=== PATIENT | male | born 1945 | race Caucasian/White ===

== ENCOUNTER 2017-01-07 05:26 | Inpatient (IN) | payer MEDICARE, MEDICAID ==
[2017-01-07] VITALS (10 sets, daily range): BP systolic 86–112; BP diastolic 52–64; PULSE 82–93; RESP 16–24; TEMP 96.5–98.9; O2SAT 92–98
--- NOTE | 2017-01-07 05:43 | PD ---
HPI Chief Complaint: Altered Mental Status Time Seen by Provider: 05:35 Travel History International Travel<30 days: No Contact w/Intl Traveler<30days: No Traveled to known affect area: No History of Present Illness HPI 71yo M with PMH of COPD, aphasia and CVA was sent from [facility] for possible aspiration. As per EVAC, pt vomited after apple juice at 3pm yesterday. Then today at about 3am, the staff noticed he was nonverbal. Pt's baseline is usually incomprehensible sounds but not nonverbal. Pt did make some sound when we moved him so this may be his baseline. He does appear dry. Was also told there was not much urine output from his palomo catheter. Unable to obtain further history. PFSH Past Medical History ?: Unknown Social History Tobacco Use: No Allergies-Medications (Allergen,Severity, Reaction): Coded Allergies: No Known Allergies (Unverified , 01/07/17) Reported Meds & Prescriptions Reported Meds & Active Scripts Active Reported Novolin R Inj (Insulin Human Regular) 1,000 Unit/10 Ml Vial 0 SQ DIRECTED Sliding Scale As Directed. Metoprolol Tartrate 50 Mg Tab 50 Mg PEG BID Lantus Inj (Insulin Glargine) 1,000 Unit/10 Ml Vial 45 Units SQ HS Ferrous Sulfate Liq (Ferrous Sulfate) 300 Mg/5 Ml Soln 220 Mg PEG BID Famotidine 20 Mg Tab 20 Mg PEG DAILY Citroma Liq (Magnesium Citrate) 300 Ml Liq 300 Ml PEG DIRECTED PRN Cholestyramine 4 Gm/Dose Powd 4 Gm PEG QID PRN 1 level scoopful of powder contains 4 grams of cholestyramine. Cerovite Advanced Formula (Multiple Vitamins W/ Minerals) 9 Mg Iron/15 Ml Liq 1 Tab PEG DAILY Calcium Carbonate 1,500 Mg Tab 600 Mg PEG TID 1,500 mg calcium carbonate (600 mg elemental calcium) Acetaminophen 325 Mg Capsule 325 Mg PEG Q4HR Review of Systems Except as stated in HPI: all other systems reviewed are Neg Physical Exam Narrative GENERAL: 71yo M not in distress. SKIN: Focused skin assessment warm/dry. HEAD: Atraumatic. Normocephalic. EYES: Pupils equal and round at 3mm bilaterally. ENT: No nasal bleeding or discharge. Mucous membranes dry. NECK: Trachea midline. No JVD. CARDIOVASCULAR: Regular rate and rhythm. No murmur appreciated. RESPIRATORY: No accessory muscle use. Coarse breath sounds bilaterally. GASTROINTESTINAL: Abdomen soft, +TTP suprapubic and LLQ. Suprapubic region felt distended. BACK: No midline ttp. MUSCULOSKELETAL: No obvious deformities. No clubbing. No cyanosis. No edema. NEUROLOGICAL: Awake and alert. Nonverbal. Right leg contracted which he has had. Data Data Last Documented VS Vital Signs Date Time Temp Pulse Resp B/P (MAP) Pulse Ox O2 Delivery O2 Flow Rate FiO2 01/07/17 07:15 86 20 96 Room Air 01/07/17 07:13 98.3 93/57 (69) 01/07/17 06:41 2.00 Orders Orders Ammonia (01/07/17 05:35) Complete Blood Count With Diff (01/07/17 05:35) Comprehensive Metabolic Panel (01/07/17 05:35) Creatine Kinase (Cpk) (01/07/17 05:35) Prothrombin Time / Inr (Pt) (01/07/17 05:35) Act Partial Throm Time (Ptt) (01/07/17 05:35) Troponin I (01/07/17 05:35) Thyroid Stimulating Hormone (01/07/17 05:35) Urinalysis - C+S If Indicated (01/07/17 05:35) Lactic Acid Sepsis Protocol (01/07/17 05:35) Blood Culture (01/07/17 05:35) Chest, Single Ap (01/07/17 05:35) Ct Brain W/O Iv Contrast(Rout) (01/07/17 05:35) Blood Glucose (01/07/17 05:35) Ecg Monitoring (01/07/17 05:35) Iv Access Insert/Monitor (01/07/17 05:35) Oximetry (01/07/17 05:35) Electrocardiogram (01/07/17 ) Urine Culture (01/07/17 05:38) Vancomycin Inj (Vancomycin Inj) (01/07/17 06:45) Piperacil-Tazo 2.25 Gm Premix (Zosyn 2.2 (01/07/17 06:45) Sodium Chlor 0.9% 1000 Ml Inj (Ns 1000 M (01/07/17 06:45) Ct Abd/Pel W/O Iv Contrast (01/07/17 ) Sodium Chlor 0.9% 1000 Ml Inj (Ns 1000 M (01/07/17 07:00) Sodium Chlor 0.9% 1000 Ml Inj (Ns 1000 M (01/07/17 07:00) Consult Palliative Care (01/07/17 ) (Hub Use Only)Inp Phy Cons/Ref (01/07/17 ) Comprehensive Metabolic Panel (01/08/17 06:00) Free Thyroxine (T4) (01/08/17 06:00) Hemoglobin (Hgb) A1c (01/08/17 06:00) Magnesium (Mg) (01/08/17 06:00) Phosphorus (Po4) (01/08/17 06:00) Thyroid Stimulating Hormone (01/08/17 06:00) Complete Blood Count With Diff (01/08/17 06:00) Insulin Aspart Supplemtl Scale (Novolog (01/07/17 12:00) Bedside Glucose ELAN.CSUGAR&03 (01/07/17 08:14) Blood Glucose Goal (Criteria) (01/07/17 08:14) Hypoglycemia 70 Mg/Dl Or < (01/07/17 08:14) Notify Dr: Other (01/07/17 08:14) Dextrose 50% In Leonard (Vial) Inj (D50w (Vi (01/07/17 08:15) Glucagon Inj (Glucagon Inj) (01/07/17 08:15) Admit To Inpatient (01/07/17 ) Code Status (01/07/17 08:14) Vital Signs (Adult) Q4H (01/07/17 08:14) Neuro Checks Q4H (01/07/17 08:14) Activity Bed Rest (01/07/17 08:14) Dental Laboratory Technician Apprentice / Telemetry .CONTINUOUS (01/07/17 08:14) Intake + Output ELAN.QSHIFT (01/07/17 08:14) Diet Npo (01/07/17 Breakfast) Sodium Chlor 0.9% 1000 Ml Inj (Ns 1000 M (01/07/17 08:14) Sodium Chloride 0.9% Flush (Ns Flush) (01/07/17 08:15) Sodium Chloride 0.9% Flush (Ns Flush) (01/07/17 09:00) Acetaminophen (Tylenol) (01/07/17 08:15) Ondansetron Inj (Zofran Inj) (01/07/17 08:15) Prochlorperazine Supp (Compazine Supp) (01/07/17 08:15) Creatine Kinase (Cpk) (01/07/17 08:14) Creatine Kinase (Cpk) (01/07/17 14:14) Creatine Kinase (Cpk) (01/07/17 20:14) Troponin I (01/07/17 08:14) Troponin I (01/07/17 14:14) Troponin I (01/07/17 20:14) Resp Oxygen Gonzales C Titrat 1-4 L (01/07/17 ) Pt Request For Service (01/07/17 08:14) Ot Request For Service (01/07/17 08:14) Dietary (Dietitian) Consult (01/07/17 08:14) Case Management Consult (01/07/17 08:14) Scd Bilateral/Knee High ELAN.BID (01/07/17 08:14) Rafal Bilateral/Knee High ELAN.QSHIFT (01/07/17 08:30) Acetaminophen (Tylenol) (01/07/17 08:15) Oxycodone-Acetamin 5-325 Mg (Percocet (01/07/17 08:15) Oxycodone-Acetamin 10-325 Mg (Percocet 1 (01/07/17 09:30) Morphine Inj (Morphine Inj) (01/07/17 09:30) Morphine Inj (Morphine Inj) (01/07/17 09:30) Naloxone Inj (Narcan Inj) (01/07/17 08:15) Docusate Sodium-Senna (Caitlin-Colace) (01/07/17 09:00) Magnesium Hydroxide Liq (Milk Of Magnesi (01/07/17 08:15) Sennosides (Senokot) (01/07/17 08:15) Bisacodyl Supp (Dulcolax Supp) (01/07/17 08:15) Lactulose Liq (Lactulose Liq) (01/07/17 08:15) Admit To Inpatient (01/07/17 ) Vital Signs (Adult) ELAN.Q4H (01/07/17 08:14) Neuro Checks . ORDERED (01/07/17 08:14) Intake + Output 06,14,22 (01/07/17 08:14) Sodium Chloride 0.9% Flush (Ns Flush) (01/07/17 08:15) Sodium Chloride 0.9% Flush (Ns Flush) (01/07/17 09:00) Famotidine Inj (Pepcid Inj) (01/07/17 09:00) Lactic Acid Sepsis Protocol (01/07/17 12:00) Resp Oxygen Gonzales C Titrat 1-4 L (01/07/17 ) Case Management Consult (01/07/17 ) Vancomycin Consult Pharmacy (Vancomycin (01/07/17 08:15) Inpatient Certification (01/07/17 ) Admit Order (Ed Use Only) (01/07/17 08:21) Albuterol-Ipratropium Neb (Duoneb Neb) (01/07/17 09:00) Labs Laboratory Tests Test 01/07/17 05:38 White Blood Count 18.9 TH/MM3 Red Blood Count 4.16 MIL/MM3 Hemoglobin 12.1 GM/DL Hematocrit 37.3 % Mean Corpuscular Volume 89.6 FL Mean Corpuscular Hemoglobin 29.1 PG Mean Corpuscular Hemoglobin Concent 32.5 % Red Cell Distribution Width 14.7 % Platelet Count 198 TH/MM3 Mean Platelet Volume 10.6 FL Neutrophils (%) (Auto) 93.2 % Lymphocytes (%) (Auto) 1.7 % Monocytes (%) (Auto) 4.9 % Eosinophils (%) (Auto) 0.1 % Basophils (%) (Auto) 0.1 % Neutrophils # (Auto) 17.7 TH/MM3 Lymphocytes # (Auto) 0.3 TH/MM3 Monocytes # (Auto) 0.9 TH/MM3 Eosinophils # (Auto) 0.0 TH/MM3 Basophils # (Auto) 0.0 TH/MM3 CBC Comment DIFF FINAL Differential Comment Prothrombin Time 12.4 SEC Prothromb Time International Ratio 1.1 RATIO Activated Partial Thromboplast Time 30.6 SEC Urine Color YELLOW Urine Turbidity HAZY Urine pH 8.5 Urine Specific Ronda 1.010 Urine Protein 30 mg/dL Urine Glucose (UA) NEG mg/dL Urine Ketones NEG mg/dL Urine Occult Blood MOD Urine Nitrite NEG Urine Bilirubin NEG Urine Urobilinogen LESS THAN 2.0 MG/DL Urine Leukocyte Esterase LARGE Urine RBC 57 /hpf Urine WBC 19 /hpf Urine Renal Epithelial Cells 1 /hpf Urine Bacteria MOD /hpf Urine Hyaline Casts 1 /lpf Urine Mucus FEW /lpf Microscopic Urinalysis Comment CATH-CULTURE IND Blood Urea Nitrogen 48 MG/DL Creatinine 2.41 MG/DL Random Glucose 150 MG/DL Total Protein 6.8 GM/DL Albumin 2.5 GM/DL Calcium Level 9.4 MG/DL Alkaline Phosphatase 316 U/L Aspartate Amino Transf (AST/SGOT) 32 U/L Alanine Aminotransferase (ALT/SGPT) 92 U/L Total Bilirubin 0.9 MG/DL Sodium Level 139 MEQ/L Potassium Level 3.3 MEQ/L Chloride Level 98 MEQ/L Carbon Dioxide Level 21.2 MEQ/L Anion Gap 20 MEQ/L Estimat Glomerular Filtration Rate 27 ML/MIN Lactic Acid Level 10.6 mmol/L Ammonia 55 MCMOL/L Total Creatine Kinase 23 U/L Troponin I 0.08 NG/ML Thyroid Stimulating Hormone 3rd Gen 2.120 uIU/ML MDM Medical Decision Making Medical Screen Exam Complete: Yes Emergency Medical Condition: Yes Differential Diagnosis Aspiration pneumonia vs. UTI vs. dehydration vs. electrolyte abnormality vs. urinary retention vs. GORAN Narrative Course 71yo M with aphasia from CVA was brought in from [facility] for altered mental status. As per EVAC, pt normally mumbles incomprehensible words but now is not talking. Pt initially was more awake but now is harder to arouse. Labs reviewed, leukocytosis at 18.9. H/H 12.1/37.3. Rest of labs are pending. UA showed large leukocyte. WBC 19. RBC 57. Pt empirically covered with vancomycin and zosyn. CXR showed no acute disease. CT brain showed no acute disease. Atrophic brain. Pt had distended lower abdomen and decreased urinary output. Palomo catheter was replaced and about 1100cc of urine came out. It was clear initially and then bloody. CT a/p- pending. BP is on the low side at 107/59 and pt has two large bore peripheral IVs and receiving second liter of NS IVF. I discussed with pt's daughter Mrs. Nara Guzman who is the health care proxy at [phone]. She states that pt is a DNR and DNI. Unsure why halfway said full code but I verified with her the code status. Sign out to next team to follow up rest of labs and CT a/p- and admit. Critical Care Narrative Aggregate critical care time was 40 minutes. Time to perform other separately billable procedures was not included in the critical care time. My time did not include minutes spent treating any other patients simultaneously or on activities that did not directly contribute to the patient's treatment. The services I provided to this patient were to treat and/or prevent clinically significant deterioration that could result in: cardiovascular collapse or . I provided critical care services requiring my management, as noted below: Chart data review, documentation time, medication orders and management, vital sign assessments/reviewing monitor data, ordering and reviewing lab tests, ordering and interpreting/reviewing x-rays and diagnostic studies, care of the patient. Diagnosis Primary Impression: Sepsis secondary to UTI Admitting Information Admitting Physician Requests: Helen Snyder DO Jan 07, 2017 05:43
[2017-01-07 05:58] LABS: AUTOMATED NEUTROPHIL # 17.7 TH/MM3 (1.8-7.7); BASOPHIL % 0.1 % (0.0-2.0); EOSINOPHIL % 0.1 % (0.0-4.0); HEMATOCRIT 37.3 % (39.0-51.0); HEMO FLAGS DIFF FINAL; LYMPH % 1.7 % (9.0-44.0); LYMPHOCYTE # 0.3 TH/MM3 (1.0-4.8); MEAN CELL VOLUME 89.6 FL (80.0-100.0); MEAN CORPUSCULAR HEMOGLOBIN 29.1 PG (27.0-34.0); MEAN CORPUSCULAR HGB CONC 32.5 % (32.0-36.0); MONO % 4.9 % (0.0-8.0); NEUT % 93.2 % (16.0-70.0); PLATELET COUNT 198 TH/MM3 (150-450); RED BLOOD COUNT 4.16 MIL/MM3 (4.50-5.90); RED CELL DISTRIBUTION WIDTH 14.7 % (11.6-17.2); WHITE BLOOD COUNT 18.9 TH/MM3 (4.0-11.0)
[2017-01-07 06:08] LABS: APTT (PATIENT) 30.6 SEC (24.3-30.1); INTERNATIONAL NORMALIZED RATIO 1.1 RATIO; PROTHROMBIN TIME - PATIENT 12.4 SEC (9.8-11.6)
[2017-01-07 06:10] LABS: BACTERIA, URINE MOD /hpf; BLOOD, URINE MOD (NEG); COMMENT (UR) CATH-CULTURE IND; CULTURE IF INDICATED CATH CULTURE IND; GLUCOSE,URINE NEG (NEG); HYALINE CAST, URINE 1 /lpf (RARE); KETONE, URINE NEG (NEG); MUCUS URINE FEW /lpf (OCC); NITRITE,URINE NEG (NEG); PH, URINE 8.5 (5.0-8.5); RENAL EPITHELIAL CELLS 1 /hpf; URINE COLOR YELLOW (YELLW/STRAW)
--- NOTE | 2017-01-07 06:30 | RADRPT ---
EXAM DATE/TIME: 01/07/2017 06:02 [facility] COMPARISON: No previous studies available for comparison. INDICATIONS : Altered mental status. RADIATION DOSE: 52.13 CTDIvol (mGy) MEDICAL HISTORY : Cerebrovascular disease. SURGICAL HISTORY : None. ENCOUNTER: Initial ACUITY: 1 day PAIN SCALE: Non-responsive LOCATION: cranial TECHNIQUE: Multiple contiguous axial images were obtained of the head. Using automated exposure control and adj ustment of the mA and/or kV according to patient size, radiation dose was kept as low as reasonably a chievable to obtain optimal diagnostic quality images. DICOM format image data is available electro nically for review and comparison. FINDINGS: There is marked central and cortical atrophy with dilatation of ventricular and sulcal spaces. There is no parenchymal hemorrhage, acute infarction or mass lesion identified. There are no extra-axial fluid collections appreciated. The posterior fossa is unremarkable with midline fourth ventricle. T he portion of the orbits and paranasal sinuses visualized are unremarkable. CONCLUSION: 1. No acute findings. Atrophic brain. Charles Christensen MD on January 07, 2017 at 6:26 Board Certified Radiologist. This report was verified electronically.
[2017-01-07] MEDS ORDERED: NOVORP2 SQ (06:35)
[2017-01-07] MEDS ORDERED: ACET325C PEG (06:35)
[2017-01-07] MEDS ORDERED: CITRSOL4 PEG (06:35)
[2017-01-07] MEDS ORDERED: FERR300S PEG (06:35)
[2017-01-07] MEDS ORDERED: FAMO20TA2 PEG (06:35)
[2017-01-07] MEDS ORDERED: LANTUS2P SQ (06:35)
[2017-01-07] MEDS ORDERED: METO50TA PEG (06:35)
[2017-01-07] MEDS ORDERED: CHOL4POW3 PEG (06:35)
[2017-01-07] MEDS ORDERED: [UNRECOGNIZED DRUG - CODE] PEG (06:35)
[2017-01-07] MEDS ORDERED: CALC600T4 PEG (06:35)
--- NOTE | 2017-01-07 06:36 | RADRPT ---
EXAM DATE/TIME: 01/07/2017 05:46 [facility] COMPARISON: No previous studies available for comparison. INDICATIONS : Non-responsive, blood in urine, vomiting MEDICAL HISTORY : Unknown SURGICAL HISTORY : Unknown ENCOUNTER: Initial ACUITY: 1 day PAIN SCORE: Non-responsive. LOCATION: Bilateral chest FINDINGS: A single view of the chest demonstrates the lungs to be symmetrically aerated without evidence of mas s, infiltrate or effusion. The cardiomediastinal contours are unremarkable. Osseous structures are intact. CONCLUSION: No acute disease. Charles Christensen MD on January 07, 2017 at 6:34 Board Certified Radiologist. This report was verified electronically.
[2017-01-07] MEDS ORDERED: SODIUM CHLOR 0.9% 1000 ML INJ 1,000 ML IV ONE ×3 (06:45→07:00)
[2017-01-07] MEDS ORDERED: PIPERACIL-TAZO 2.25 GM PREMIX 50 ML IV ONE ×2 (06:45→09:45)
[2017-01-07] MEDS ORDERED: VANCOMYCIN INJ 1,000 MG in SODIUM CHLOR 0.9% 250 ML INJ 250 ML IV ONE (06:45)
--- NOTE | 2017-01-07 07:13 | RADRPT ---
EXAM DATE/TIME: 01/07/2017 06:52 [facility] COMPARISON: No previous studies available for comparison. INDICATIONS : Left lower quadrant pain and hematuria. ORAL CONTRAST: No oral contrast ingested. RADIATION DOSE: 12.61 CTDIvol (mGy) MEDICAL HISTORY : Gastroesophageal reflux disease. Diabetes mellitus type 2. Hypertension.Renal failure. CVA. COPD. Dem entia. SURGICAL HISTORY : None. ENCOUNTER: Initial ACUITY: 1 day PAIN SCALE: 3/10 LOCATION: Left lower quadrant TECHNIQUE: Volumetric scanning of the abdomen and pelvis was performed. Using automated exposure control and ad justment of the mA and/or kV according to patient size, radiation dose was kept as low as reasonably achievable to obtain optimal diagnostic quality images. DICOM format image data is available electro nically for review and comparison. FINDINGS: LOWER LUNGS: There is mild atelectasis versus consolidation at the lung bases. LIVER: Homogeneous density without lesion. There is no dilation of the biliary tree. No calcified gallston es. SPLEEN: Normal size without lesion. PANCREAS: Within normal limits. KIDNEYS: Normal in size and shape. There is no mass, stone, or hydronephrosis. There is mild fullness of the collecting systems bilaterally with mild hydroureter. There is mild perinephric stranding bilaterally . ADRENAL GLANDS: Within normal limits. VASCULAR: There is no aortic aneurysm. There is moderate severe atherosclerotic disease. Coronary artery calcif ication is present. BOWEL/MESENTERY: The stomach, small bowel, and colon demonstrate no acute abnormality. There is no free intraperitone al air or fluid. G-tube is present in the stomach. ABDOMINAL WALL: Within normal limits. RETROPERITONEUM: There is no lymphadenopathy. BLADDER: Decompressed with Mcginnis catheter present. REPRODUCTIVE: Within normal limits. INGUINAL: There is no lymphadenopathy or hernia. MUSCULOSKELETAL: There degenerative changes of the lumbar spine. Ossification is present around the joints bilaterally . CONCLUSION: 1. No abnormality is identified on this noncontrast examination to explain the patient's hematuria. N o renal stones are seen. There is fullness of the collecting systems bilaterally. 2. Mild atelectasis versus consolidation at the lung bases. Nahum Blue MD on January 07, 2017 at 7:06 Board Certified Radiologist. This report was verified electronically.
[2017-01-07 07:27] LABS: BLOOD UREA NITROGEN 48 MG/DL (7-18); GLOMERULAR FILTRATION RATE 27 ML/MIN (>89)
[2017-01-07 07:28] LABS: ALT (GPT) 92 U/L (12-78); ANION GAP 20 MEQ/L (5-15); AST (GOT) 32 U/L (15-37); BICARBONATE 21.2 MEQ/L (21.0-32.0); CHLORIDE 98 MEQ/L (98-107); POTASSIUM 3.3 MEQ/L (3.5-5.1); SODIUM (NA) 139 MEQ/L (136-145)
[2017-01-07 07:37] LABS: ALKALINE PHOSPHATASE 316 U/L (45-117); CREATINE KINASE 23 U/L (39-308); TOTAL BILIRUBIN ADULT 0.9 MG/DL (0.2-1.0)
[2017-01-07 07:49] LABS: LACTIC ACID GHOST NOT REPORTABLE
[2017-01-07] MEDS ORDERED: oxyCODONE/ACETAMINOPHEN 5 MG/325 MG TAB PO PRN (08:15)
[2017-01-07] MEDS ORDERED: PROCHLORPERAZINE 25 MG SUPP RECTAL PRN (08:15)
[2017-01-07] MEDS ORDERED: MAGNESIUM HYDROXIDE SUSP 30 ML CUP PO PRN (08:15)
[2017-01-07] MEDS ORDERED: DEXTROSE 50% IN WATER 50 ML VIAL(D50) IV PUSH PRN (08:15)
[2017-01-07] MEDS ORDERED: ACETAMINOPHEN 325 MG TAB PO PRN ×2 (08:15)
[2017-01-07] MEDS ORDERED: ONDANSETRON HCL 4 MG/2 ML VIAL IVP PRN (08:15)
[2017-01-07] MEDS ORDERED: Vancomycin Consult Pharmacy 1 EA OTHER SCH (08:15)
[2017-01-07] MEDS ORDERED: NALOXONE HCL 0.4 MG/ML AMP IV PUSH PRN (08:15)
[2017-01-07] MEDS ORDERED: SODIUM CHLORIDE 0.9% FLUSH 10 ML FLUSH IV FLUSH PRN ×2 (08:15)
[2017-01-07] MEDS ORDERED: BISACODYL 10 MG SUPP RECTAL PRN (08:15)
[2017-01-07] MEDS ORDERED: SENNOSIDES 8.6 MG TAB PO PRN (08:15)
[2017-01-07] MEDS ORDERED: GLUCAGON 1 MG/ML VIAL OTHER PRN (08:15)
[2017-01-07] MEDS ORDERED: LACTULOSE SYRUP 20 GM/30 ML CUP PO PRN (08:15)
--- NOTE | 2017-01-07 08:55 | EKG ---
Date Performed: 01/07/2017 Time Performed: 06:01:14 PTAGE: 71 years EKG: Sinus rhythm ST ABNORMALITY, CONSIDER EARLY REPOLARIZATION, CANNOT RULE OUT ACUTE INFERIOR INJURY ABNORMAL ECG NO PREVIOUS TRACING DOCTOR: Stew Antunez Interpretating Date/Time 01/07/2017 08:54:38
[2017-01-07] MEDS ORDERED: MAGNESIUM CITRATE SOLN 300 ML BTL PEG PRN (09:00)
[2017-01-07] MEDS ORDERED: RESP: ALBUTEROL 2.5 MG/IPRATROPIUM 0.5 MG NEB (PRN) NEB (09:00)
[2017-01-07] MEDS: METOPROLOL TARTRATE 50 MG TAB PEG SCH ×2 (09:00→21:00)
[2017-01-07] MEDS ORDERED: SODIUM CHLORIDE 0.9% FLUSH 10 ML FLUSH IV FLUSH SCH (09:00)
[2017-01-07] MEDS ORDERED: CHOLESTYRAMINE 4 GM PACKET PEG PRN (09:00)
--- NOTE | 2017-01-07 09:21 | HHI.HP ---
[facility] No Primary Care Physician Admission Diagnosis sepsis, uti Diagnoses: (1) COPD (chronic obstructive pulmonary disease) Diagnosis: Secondary (2) Aphasia Diagnosis: Secondary (3) CVA (cerebral vascular accident) Diagnosis: Secondary (4) Hypertension Diagnosis: Secondary (5) Sepsis secondary to UTI Diagnosis: Principal Chief Complaint: Mental status Travel History International Travel<30 Days: No Contact w/Intl Traveler <30 Da: No Traveled to Known Affected Are: No Sepsis Criteria Sepsis Criteria (SIRS+source): Infect source susp/known Severe Sepsis (+one): Lactate >2 Septic Shock Criteria: Lactic acid >=4 Criteria Outcome: Meets SIRS criteria, Meets sepsis criteria History of Present Illness 71yo M with PMH of COPD, aphasia and CVA was sent from senior living for possible aspiration. As per EVAC, pt vomited after apple juice at 3pm yesterday. Then today at about 3am, the staff noticed he was nonverbal. Pt's baseline is usually incomprehensible sounds but not nonverbal. Pt did make some sound when we moved him so this may be his baseline. He does appear dry. Was also told there was not much urine output from his palomo catheter. Unable to obtain further history. Review of Systems ROS Limitations: Unresponsive Past Family Social History Past Medical History CVA Hypertension Diabetes Dysphagia Aphasia Hypertension COPD GERD Neurogenic bladder with chronic indwelling Palomo catheter Past Surgical History Status post PEG Reported Medications Reported Meds & Active Scripts Active Reported Novolin R Inj (Insulin Human Regular) 1,000 Unit/10 Ml Vial 0 SQ DIRECTED Sliding Scale As Directed. Metoprolol Tartrate 50 Mg Tab 50 Mg PEG BID Lantus Inj (Insulin Glargine) 1,000 Unit/10 Ml Vial 45 Units SQ HS Ferrous Sulfate Liq (Ferrous Sulfate) 300 Mg/5 Ml Soln 220 Mg PEG BID Famotidine 20 Mg Tab 20 Mg PEG DAILY Citroma Liq (Magnesium Citrate) 300 Ml Liq 300 Ml PEG DIRECTED PRN Cholestyramine 4 Gm/Dose Powd 4 Gm PEG QID PRN 1 level scoopful of powder contains 4 grams of cholestyramine. Cerovite Advanced Formula (Multiple Vitamins W/ Minerals) 9 Mg Iron/15 Ml Liq 1 Tab PEG DAILY Calcium Carbonate 1,500 Mg Tab 600 Mg PEG TID 1,500 mg calcium carbonate (600 mg elemental calcium) Acetaminophen 325 Mg Capsule 325 Mg PEG Q4HR Allergies: Coded Allergies: No Known Allergies (Unverified , 01/07/17) Active Ordered Medications Current Medications Vancomycin HCl 1000 mg/Sodium Chloride 250 ml @ 250 mls/hr ONCE ONCE IV Last administered on 01/07/17 08:17; Start 01/07/17 at 06:45; Stop 01/07/17 at 07 :44; Status DC Piperacillin Sod/ Tazobactam Sod 50 ml @ 100 mls/hr ONCE ONCE IV ; Start at 06:45; Stop 01/07/17 at 07:14; Status DC Sodium Chloride 1,000 ml @ 999 mls/hr BOLUS ONCE IV Last administered on 06:48; Start 01/07/17 at 06:45; Stop 01/07/17 at 07:45; Status DC Sodium Chloride 1,000 ml @ 999 mls/hr BOLUS ONCE IV Last administered on 08:59; Start 01/07/17 at 07:00; Stop 01/07/17 at 08:00; Status DC Sodium Chloride 1,000 ml @ 999 mls/hr BOLUS ONCE IV Last administered on 07:04; Start 01/07/17 at 07:00; Stop 01/07/17 at 08:00; Status DC Insulin Aspart (NovoLOG SUPPLEMENTAL SCALE) 1 ACHS SLIDING SCALE SQ ; Start at 12:00 Dextrose (D50w (Vial) Inj) 50 ml UNSCH PRN IV PUSH HYPOGLYCEMIA-SEE COMMENTS; Start 01/07/17 at 08:15 Glucagon (Glucagon Inj) 1 mg UNSCH PRN OTHER HYPOGLYCEMIA-SEE COMMENTS; Start 01/07/17 at 08:15 Sodium Chloride 1,000 ml @ 125 mls/hr Q8H IV ; Start 01/07/17 at 08:14 Sodium Chloride (NS Flush) 2 ml UNSCH PRN IV FLUSH FLUSH AFTER USING IV ACCESS ; Start 01/07/17 at 08:15; Stop 01/07/17 at 08:59; Status DC Sodium Chloride (NS Flush) 2 ml BID IV FLUSH ; Start 01/07/17 at 09:00; Stop 01/07/17 at 09:00; Status DC Acetaminophen (Tylenol) 650 mg Q4H PRN PO TEMP > 100.4; Start 01/07/17 at 08: 15 Ondansetron HCl (Zofran Inj) 4 mg Q6H PRN IVP NAUSEA OR VOMITING; Start at 08:15; Status UNV Prochlorperazine (Compazine Supp) 25 mg Q12H PRN MT NAUSEA OR VOMITING; Start 01/07/17 at 08:15; Status UNV Acetaminophen (Tylenol) 650 mg Q6H PRN PO PAIN SCALE 1 TO 2; Start 01/07/17 at 08:15 Oxycodone/ Acetaminophen (Percocet 5-325 Mg) 1 tab Q6H PRN PO PAIN SCALE 3 TO 5; Start 01/07/17 at 08:15; Status UNV Oxycodone/ Acetaminophen (Percocet 10-325 Mg) 1 tab Q6H PRN PO PAIN SCALE 6 TO 10; Start 01/07/17 at 08:15; Status UNV Morphine Sulfate (Morphine Inj) 2 mg Q3H PRN IV PUSH Pain 3-5; if unable to take PO; Start 01/07/17 at 08:15; Status UNV Morphine Sulfate (Morphine Inj) 4 mg Q3H PRN IV PUSH Pain 6-10;if unable to take PO; Start 01/07/17 at 08:15; Status UNV Naloxone HCl (Narcan Inj) 0.4 mg UNSCH PRN IV PUSH SEE LABEL COMMENTS; Start 01/07/17 at 08:15; Status UNV Senna/Docusate Sodium (Caitlin-Colace) 1 tab BID PO ; Start 01/07/17 at 09:00 Magnesium Hydroxide (Milk Of Magnesia Liq) 30 ml Q12H PRN PO Mild constipation ; Start 01/07/17 at 08:15 Sennosides (Senokot) 17.2 mg Q12H PRN PO Moderate constipation; Start at 08:15 Bisacodyl (Dulcolax Supp) 10 mg DAILY PRN RECTAL SEVERE CONSITIPATION; Start 01/07/17 at 08:15 Lactulose (Lactulose Liq) 30 ml DAILY PRN PO SEVERE CONSITIPATION; Start 01/07 at 08:15 Sodium Chloride (NS Flush) 2 ml UNSCH PRN IV FLUSH FLUSH AFTER USING IV ACCESS ; Start 01/07/17 at 08:15 Sodium Chloride (NS Flush) 2 ml BID IV FLUSH ; Start 01/07/17 at 09:00 Famotidine (Pepcid Inj) 10 mg Q12HR IV PUSH ; Start 01/07/17 at 09:00 Albuterol/ Ipratropium (Duoneb Neb) 1 ampule Q4HR NEB PRN NEB WHEEZING; Start 01/07/17 at 09:00 Piperacillin Sod/ Tazobactam Sod 100 ml @ 200 mls/hr Q6H IV ; Start 01/07/17 at 08:15; Status UNV Pharmacy Profile Note 0 ml @ 0 mls/hr UNSCH OTHER ; Start 01/07/17 at 08:15 Family History Unobtainable from patient Social History Lives in [facility] facility no longer smokes and drinks or does illicit drugs Physical Exam Vital Signs Vital Signs Date Time Temp Pulse Resp B/P (MAP) Pulse Ox O2 Delivery O2 Flow Rate FiO2 01/07/17 08:35 95 21 01/07/17 07:15 86 20 96 Room Air 01/07/17 07:13 98.3 89 20 93/57 (69) 95 Room Air 01/07/17 06:41 90 16 100/59 (73) 97 Nasal Cannula 2.00 01/07/17 06:30 90 18 112/62 (79) 97 Nasal Cannula 2.00 01/07/17 06:21 86 18 107/59 (75) 98 Nasal Cannula 2.00 01/07/17 05:49 21 92 Room Air 01/07/17 05:29 97.3 93 24 106/64 (78) Physical Exam GENERAL: This is a well-nourished, well-developed patient, in no apparent distress.NONVERBAL- FOLLOWS NO COMMANDS AT THIS TIME SKIN: No rashes, ecchymoses or lesions. Cool and dry. HEAD: Atraumatic. Normocephalic. No temporal or scalp tenderness. EYES: Pupils equal round and reactive. Extraocular motions NOT ABLE TO BE ASSESSED. No scleral icterus. No injection or drainage. ENT: Nose without bleeding, purulent drainage or septal hematoma. Throat without erythema, tonsillar hypertrophy or exudate. . Airway patent. NECK: Trachea midline. No JVD or lymphadenopathy. Supple, nontender, no meningeal signs. CARDIOVASCULAR: Regular rate and rhythm without murmurs, gallops, or rubs. S1, S2 NO S3 OR S4 RESPIRATORY: Coarse breath sounds bilaterally. Breath sounds equal bilaterally. No wheezes, rhonchi's bilaterally coarse GASTROINTESTINAL: Abdomen soft, non-tender, nondistended. No hepato-splenomegaly , or palpable masses. No guarding. PEG tube Palomo catheter in place MUSCULOSKELETAL: Extremities without clubbing, cyanosis, or edema. No joint tenderness, effusion, or edema noted. No calf tenderness. Negative Homans sign bilaterally. Has bilateral contractURES NEUROLOGICAL: Not Awake and alert. Cannot assess Cranial nerves II through XII. Motor and sensory not able to be assessed. Some contractures. ABNormal speech. Patient remains nonverbal Not able to assess insight and judgment not able to assess mood and behavior Laboratory Laboratory Tests Test 01/07/17 05:38 01/07/17 08:45 White Blood Count 18.9 Red Blood Count 4.16 Hemoglobin 12.1 Hematocrit 37.3 Mean Corpuscular Volume 89.6 Mean Corpuscular Hemoglobin 29.1 Mean Corpuscular Hemoglobin Concent 32.5 Red Cell Distribution Width 14.7 Platelet Count 198 Mean Platelet Volume 10.6 Neutrophils (%) (Auto) 93.2 Lymphocytes (%) (Auto) 1.7 Monocytes (%) (Auto) 4.9 Eosinophils (%) (Auto) 0.1 Basophils (%) (Auto) 0.1 Neutrophils # (Auto) 17.7 Lymphocytes # (Auto) 0.3 Monocytes # (Auto) 0.9 Eosinophils # (Auto) 0.0 Basophils # (Auto) 0.0 CBC Comment DIFF FINAL Differential Comment Prothrombin Time 12.4 Prothromb Time International Ratio 1.1 Activated Partial Thromboplast Time 30.6 Urine Color YELLOW Urine Turbidity HAZY Urine pH 8.5 Urine Specific Reading 1.010 Urine Protein 30 Urine Glucose (UA) NEG Urine Ketones NEG Urine Occult Blood MOD Urine Nitrite NEG Urine Bilirubin NEG Urine Urobilinogen LESS THAN 2.0 Urine Leukocyte Esterase LARGE Urine RBC 57 Urine WBC 19 Urine Renal Epithelial Cells 1 Urine Bacteria MOD Urine Hyaline Casts 1 Urine Mucus FEW Microscopic Urinalysis Comment CATH-CULTURE IND Blood Urea Nitrogen 48 Creatinine 2.41 Random Glucose 150 Total Protein 6.8 Albumin 2.5 Calcium Level 9.4 Alkaline Phosphatase 316 Aspartate Amino Transf (AST/SGOT) 32 Alanine Aminotransferase (ALT/SGPT) 92 Total Bilirubin 0.9 Sodium Level 139 Potassium Level 3.3 Chloride Level 98 Carbon Dioxide Level 21.2 Anion Gap 20 Estimat Glomerular Filtration Rate 27 Lactic Acid Level 10.6 Ammonia 55 Total Creatine Kinase 23 Troponin I 0.08 Thyroid Stimulating Hormone 3rd Gen 2.120 Date/Time Source Procedure Growth Status 01/07/17 05:38 Blood Peripheral Aerobic Blood Culture Pending Received 01/07/17 05:38 Blood Peripheral Anaerobic Blood Culture Pending Received 01/07/17 05:38 Urine Catheterized Urine Urine Culture Pending Received Result Diagram: [id number]/07/[id number] Abd/Pel W/O IV Contrast Signed EXAM DATE/TIME: 01/07/2017 06:52 [facility] COMPARISON: No previous studies available for comparison. INDICATIONS : Left lower quadrant pain and hematuria. ORAL CONTRAST: No oral contrast ingested. RADIATION DOSE: 12.61 CTDIvol (mGy) MEDICAL HISTORY : Gastroesophageal reflux disease. Diabetes mellitus type 2. Hypertension.Renal failure. CVA. COPD. Dementia. SURGICAL HISTORY : None. ENCOUNTER: Initial ACUITY: 1 day PAIN SCALE: 3/10 LOCATION: Left lower quadrant TECHNIQUE: Volumetric scanning of the abdomen and pelvis was performed. Using automated exposure control and adjustment of the mA and/or kV according to patient size, radiation dose was kept as low as reasonably achievable to obtain optimal diagnostic quality images. DICOM format image data is available electronically for review and comparison. FINDINGS: LOWER LUNGS: There is mild atelectasis versus consolidation at the lung bases. LIVER: Homogeneous density without lesion. There is no dilation of the biliary tree. No calcified gallstones. SPLEEN: Normal size without lesion. PANCREAS: Within normal limits. KIDNEYS: Normal in size and shape. There is no mass, stone, or hydronephrosis. There is mild fullness of the collecting systems bilaterally with mild hydroureter. There is mild perinephric stranding bilaterally. ADRENAL GLANDS: Within normal limits. VASCULAR: There is no aortic aneurysm. There is moderate severe atherosclerotic disease. Coronary artery calcification is present. BOWEL/MESENTERY: The stomach, small bowel, and colon demonstrate no acute abnormality. There is no free intraperitoneal air or fluid. G-tube is present in the stomach. ABDOMINAL WALL: Within normal limits. RETROPERITONEUM: There is no lymphadenopathy. BLADDER: Decompressed with Palomo catheter present. REPRODUCTIVE: Within normal limits. INGUINAL: There is no lymphadenopathy or hernia. MUSCULOSKELETAL: There degenerative changes of the lumbar spine. Ossification is present around the joints bilaterally. CONCLUSION: 1. No abnormality is identified on this noncontrast examination to explain the patient's hematuria. No renal stones are seen. There is fullness of the collecting systems bilaterally. 2. Mild atelectasis versus consolidation at the lung bases.Chest, Single AP Signed EXAM DATE/TIME: 01/07/2017 05:46 [facility] COMPARISON: No previous studies available for comparison. INDICATIONS : Non-responsive, blood in urine, vomiting MEDICAL HISTORY : Unknown SURGICAL HISTORY : Unknown ENCOUNTER: Initial ACUITY: 1 day PAIN SCORE: Non-responsive. LOCATION: Bilateral chest FINDINGS: A single view of the chest demonstrates the lungs to be symmetrically aerated without evidence of mass, infiltrate or effusion. The cardiomediastinal contours are unremarkable. Osseous structures are intact. CONCLUSION: No acute disease. CT Brain W/O IV Contrast(Rout) Signed EXAM DATE/TIME: 01/07/2017 06:02 [facility] COMPARISON: No previous studies available for comparison. INDICATIONS : Altered mental status. RADIATION DOSE: 52.13 CTDIvol (mGy) MEDICAL HISTORY : Cerebrovascular disease. SURGICAL HISTORY : None. ENCOUNTER: Initial ACUITY: 1 day PAIN SCALE: Non-responsive LOCATION: cranial TECHNIQUE: Multiple contiguous axial images were obtained of the head. Using automated exposure control and adjustment of the mA and/or kV according to patient size, radiation dose was kept as low as reasonably achievable to obtain optimal diagnostic quality images. DICOM format image data is available electronically for review and comparison. FINDINGS: There is marked central and cortical atrophy with dilatation of ventricular and sulcal spaces. There is no parenchymal hemorrhage, acute infarction or mass lesion identified. There are no extra-axial fluid collections appreciated. The posterior fossa is unremarkable with midline fourth ventricle. The portion of the orbits and paranasal sinuses visualized are unremarkable. CONCLUSION: 1. No acute findings. Atrophic brain. Caprini VTE Risk Assessment Caprini VTE Risk Assessment: Mod/High Risk (score >= 2) Caprini Risk Assessment Model Point Value = 1 Point Value = 2 Point Value = 3 Point Value = 5 Age 41-60 Minor surgery BMI > 25 kg/m2 Swollen legs Varicose veins or History of unexplained or recurrent spontaneous Oral contraceptives or hormone replacement Sepsis (< 1 month) Serious lung disease, including pneumonia (< 1 month) Abnormal pulmonary function Acute myocardial infarction Congestive heart failure (< 1 month) History of inflammatory bowel disease Medical patient at bed rest Age 61-74 Arthroscopic surgery Major open surgery (> 45 min) Laparoscopic surgery (> 45 min) Malignancy Confined to bed (> 72 hours) Immobilizing plaster cast Central venous access Age >= 75 History of VTE Family history of VTE Factor V Leiden Prothrombin [id number] Lupus anticoagulant Anticardiolipin antibodies Elevated serum homocysteine Heparin-induced thrombocytopenia Other congenital or acquired thrombophilia Stroke (< 1 month) Elective arthroplasty Hip, pelvis, or leg fracture Acute spinal cord injury (< 1 month) Prophylaxis Regimen Total Risk Factor Score Risk Level Prophylaxis Regimen 0-1 Low Early ambulation 2 Moderate Order ONE of the following: *Sequential Compression Device (SCD) *Heparin 5000 units SQ BID 3-4 Higher Order ONE of the following medications: *Heparin 5000 units SQ TID *Enoxaparin/Lovenox 40 mg SQ daily (WT < 150 kg, CrCl > 30 mL/min) *Enoxaparin/Lovenox 30 mg SQ daily (WT < 150 kg, CrCl > 10-29 mL/min) *Enoxaparin/Lovenox 30 mg SQ BID (WT < 150 kg, CrCl > 30 mL/min) AND/OR *Sequential Compression Device (SCD) 5 or more Highest Order ONE of the following medications: *Heparin 5000 units SQ TID (Preferred with Epidurals) *Enoxaparin/Lovenox 40 mg SQ daily (WT < 150 kg, CrCl > 30 mL/min) *Enoxaparin/Lovenox 30 mg SQ daily (WT < 150 kg, CrCl > 10-29 mL/min) *Enoxaparin/Lovenox 30 mg SQ BID (WT < 150 kg, CrCl > 30 mL/min) AND *Sequential Compression Device (SCD) Assessment and Plan Problem List: (1) Diabetes ICD Code: E11.9 - Type 2 diabetes mellitus without complications (2) CVA (cerebral vascular accident) ICD Code: I63.9 - Cerebral infarction, unspecified (3) Aphasia ICD Code: R47.01 - Aphasia (4) Hypertension ICD Code: I10 - Essential (primary) hypertension (5) COPD (chronic obstructive pulmonary disease) ICD Code: J44.9 - Chronic obstructive pulmonary disease, unspecified (6) Sepsis secondary to UTI ICD Code: A41.9 - Sepsis, unspecified organism; N39.0 - Urinary tract infection , site not specified Status: Acute Assessment and Plan SEPSIS SUSPECT UTI VERSUS PNEUMONIA CONTINUE ON ZOSYN AND VANCO IS A DNR CONSULT PALLIATIVE CARE DM ON LANTUS AT HOME- CHECK SUGARS AC AND HS TUBE FEEDS PER NUTRITION HYPERTENSION- HOME MEDS DYSPHAGIA- TUBE FEEDS APHASIA DUE TO CVA-OT AND PT COPD HX OF EXTENSIVE TOBACCO ABUSE- DUONEBS PRN FAMILY WANTS DNR WILL CONSULT PALLIATIVE CARE ONLY ANTIBIOTICS AND FLUIDS NO AGGRESSIVE TREATMENTS DW RN AND PT FAMILY GUARDED PROGNOSIS Code Status DNR Discussed Condition With FAMILY AND ER AND RN PATIENT IS NONVERBAL Physician Certification 2 Midnight Certification Type: Admission for Inpatient Services Order for Inpatient Services The services are ordered in accordance with Medicare regulations or non- Medicare payer requirements, as applicable. In the case of services not specified as inpatient-only, they are appropriately provided as inpatient services in accordance with the 2-midnight benchmark. Estimated LOS (days): 3 3 days is the estimated time the patient will need to remain in the hospital, assuming treatment plan goals are met and no additional complications. Post-Hospital Plan: Not yet determined Oz Chin DO Jan 07, 2017 09:21
[2017-01-07] MEDS ORDERED: oxyCODONE/ACETAMINOPHEN 10 MG/325 MG TAB PO PRN (09:30)
[2017-01-07] MEDS ORDERED: MORPHINE SULFATE 4 MG/ML INJ IV PUSH PRN ×2 (09:30)
[2017-01-07] MEDS: SODIUM CHLOR 0.9% 1000 ML INJ 1,000 ML IV SCH ×2 (09:33→18:19)
[2017-01-07] MEDS: SODIUM CHLORIDE 0.9% FLUSH 10 ML FLUSH IV FLUSH SCH (09:38)
[2017-01-07] MEDS: FAMOTIDINE 20 MG/2 ML VIAL IV PUSH SCH (09:42)
[2017-01-07] MEDS: CALCIUM CARBONATE 1.25 GM (CA 500 MG) TAB PEG SCH ×3 (09:42→18:19)
[2017-01-07] MEDS: MULTIVITAMINS/MINERALS THERAPEUTIC TAB PEG SCH (09:42)
[2017-01-07] MEDS: DOCUSATE SODIUM 50 MG/SENNA 8.6 MG TAB PO SCH ×2 (09:42→21:00)
[2017-01-07] MEDS ORDERED: POTASSIUM CHLORIDE 25 MEQ EFFERVESCENT TAB PEG ONE (09:45)
[2017-01-07] MEDS ORDERED: PIPERACIL-TAZO 4.5 GM PREMIX 100 ML IV SCH (10:00)
--- NOTE | 2017-01-07 10:30 | PD.CONS ---
Consult Service Palliative Care Consult Requested By Dr. Gu Primary Care Physician No Primary Care Physician Reason for Consultation a. To assist with evaluation and management of symptoms including: confusion , dysphagia, Debility b. To assist medical decision maker(s) with: better understanding of current medical conditions; weighing benefits/burdens of medical treatment options; making medical treatment decisions. (Benson Mcfadden) HPI History of Present Illness Mr. Young is a 71 years old male with a past medical history of dementia, COPD , GERD, DM Type 11, hypertension,aphasia, dysphagia, dementia and neurogenic bladder. Patient is a resident at the [facility]. Patient presented to the ED on 01/07/17 after he vomited and became nonverbal later on at the penitent[facility] which is not his norm. Per penitentiary staff report, patient usually is nonverbal but makes incomprehensible sounds. Laboratory workup revealed WBC 18.9, hemoglobin 12.1, hematocrit 37.3, platelet count 198, PT 12.4 , INR 1.1, APTT 30.6, sodium 139, potassium 3.3, BUN/creatinine 48/2.41, random glucose 150, Lactic acid 10.6, AST 32, ALT 92, Ammonia 55, albumin 2.5. Head CT revealed no acute findings. Atrophic brain. Chest X-ray revealed no acute disease. Patient was found to have decreased urine output and abdominal distention. Abdomen/Pelvis CT revealed no acute abnormality in stomach, small bowel and colon, no free intraperitoneal air or fluid. G-tube is present in the stomach and mild atelectasis versus consolidation at the lung bases, and also mild fullness of the collecting systems bilaterally with mild hydroureter. There is mild perinephric stranding bilaterally. In ED patient, was empirically covered with Vancomycin and Zosyn for possible aspiration pneumonia. Mcginnis catheter was inserted and patient was noted to have hematuria. UA revealed large leucocyte, and culture is pending. Patient`s family indicated that they want patient to be a DNR and only want patient to be conservatively treated with antibiotics and fluids with no aggressive treatment. Palliative care consulted. Patient is afebrile. SBP low 90s-low 100s. Patient is on room air , with O2sat in the 90s. Patient is nonverbal, only makes incomprehensible sounds. Patient does not follow commands, but spontaneously moves all extremities except for right lower extremity that is contracted. Family meeting with patient`s and daughter at bedside. Discussed code status and family reiterated that they want patient to be a DNR. Discussed patients` course of illness since March 15, 2016, including progressive decline since then. Discussed patient`s completed five wishes. Family explained that patient has been sick since February and has not recuperated since then. They verbalized that patient would not want to live in the physical and mental state he currently is in. Family stated that they had been hopeful that patient would recover from his illness and wanted to allow enough time for meaningful recovery but they now realize that patient will likely not return to his baseline prior to hospitalization in February. Obtained psychosocial and past medical history. Introduced hospice philosophy and benefits. Family willing to speak with someone from hospice. They indicate that they would like patient to be treated with antibiotics and would want him to be discharged back to [facility] with hospice. Patient has completed five wishes. Patient designated his Yoana Young as his Health Care Agent and his daughter Nara Guzman as his alternate Health Care Agent. Patient`s has opted out and Nara Guzman will make medical decisions for patient. Even though patient`s opted out, she still is involved with patient`s care and is agreeable with decisions made by her daughter. . Function/Cognitive Trajectory Patient is a penitentiary patient, who is aphasic, dysphagic and has right leg contracture as well as a peg tube. Patient is dependent on all his ADLs. Patient is not able to verbalize his needs. Per discussion with family , patient has been sick since March 15, 2016. Prior to that he used to be able to walk 3 miles a day and was independent of his ADLs. Patient was hospitalized in February at [facility] after complaining of chest pain and he was found to have blood sugar of 400. Patient was treated and discharged home, only to go back to the hospital 2 days later after sustaining a fall and became unresponsive. Patient was hospitalized at [facility] from February to May 11, 2016. During that hospitalization patient was in septic shock, requiring intubation and after extubation in early March he was encephalopathic. Patient`s daughter denied any history of CVA. Patient was [facility] to a [facility] with an indwelling catheter, PEG tube and according to family patient has never spoken since May, he only mumbles incomprehensible words. Patient has had recurrent UTI and was treated with antibiotics for 3 months. He was followed by Dr. Hogan, Infectious disease.Patient has been bedbound since March and totally dependent on all his ADLs, incontinent of bowel and bladder. Daughter also mentioned that patient had mild dementia prior to his prolonged illness. (Benson Mcfadden) Review of Systems ROS Limitations: Clinical Condition, Altered Mental Status, Other (Patient is aphasic) Constitutional: COMPLAINS OF: Generalized weakness Eyes: DENIES: Eye inflammation Ears, nose, mouth, throat: DENIES: Nasal discharge Respiratory: DENIES: Shortness of breath Cardiovascular: DENIES: Lower Extremity Edema Gastrointestinal: COMPLAINS OF: Vomiting, Difficulty Swallowing Genitourinary: COMPLAINS OF: Urinary incontinence, Hematuria Musculoskeletal: COMPLAINS OF: Decreased range of motion Neurologic: COMPLAINS OF: Speech Problems Psychiatric: COMPLAINS OF: Confusion Other ROS: ROS obtained from medical history and clinical observation. . (Benson Mcfadden) Past Family Social History Coded Allergies: No Known Allergies (Unverified , 01/07/17) Past Medical History COPD Dementia Aphasia Hypertension Diabetes mellitus type 2 Recurrent UTI Neurogenic bladder GERD . Past Surgical History PEG placement . Reported Medications Novolin R Inj (Insulin Human Regular) 1,000 Unit/10 Ml Vial 0 SQ DIRECTED Metoprolol Tartrate 50 Mg Tab 50 Mg PEG BID Lantus Inj (Insulin Glargine) 1,000 Unit/10 Ml Vial 45 Units SQ HS Ferrous Sulfate Liq (Ferrous Sulfate) 300 Mg/5 Ml Soln 220 Mg PEG BID Famotidine 20 Mg Tab 20 Mg PEG DAILY Citroma Liq (Magnesium Citrate) 300 Ml Liq 300 Ml PEG DIRECTED PRN Cholestyramine 4 Gm/Dose Powd 4 Gm PEG QID PRN Cerovite Advanced Formula (Multiple Vitamins W/ Minerals) 9 Mg Iron/15 Ml Liq 1 Tab PEG DAILY Calcium Carbonate 1,500 Mg Tab 600 Mg PEG TID Acetaminophen 325 Mg Capsule 325 Mg PEG Q4HR . Current Medications Medications (Trade) Dose Ordered Sig/Petros Route Start Time Stop Time Status Last Admin (NovoLOG SUPPLEMENTAL SCALE) 1 ACHS SLIDING SCALE SQ 01/07/17 12:00 (D50w (Vial) Inj) 50 ml UNSCH PRN IV PUSH 01/07/17 08:15 (Glucagon Inj) 1 mg UNSCH PRN OTHER 01/07/17 08:15 Sodium Chloride 1,000 ml @ 125 mls/hr Q8H IV 01/07/17 08:14 (Tylenol) 650 mg Q4H PRN PO 01/07/17 08:15 (Zofran Inj) 4 mg Q6H PRN IVP 01/07/17 08:15 (Compazine Supp) 25 mg Q12H PRN RECTAL 01/07/17 08:15 (Tylenol) 650 mg Q6H PRN PO 01/07/17 08:15 (Percocet 5-325 Mg) 1 tab Q6H PRN PO 01/07/17 08:15 (Percocet 10-325 Mg) 1 tab Q6H PRN PO 01/07/17 09:30 (Morphine Inj) 2 mg Q3H PRN IV PUSH 01/07/17 09:30 (Morphine Inj) 4 mg Q3H PRN IV PUSH 01/07/17 09:30 (Narcan Inj) 0.4 mg UNSCH PRN IV PUSH 01/07/17 08:15 (Caitlin-Colace) 1 tab BID PO 01/07/17 09:00 (Milk Of Magnesia Liq) 30 ml Q12H PRN PO 01/07/17 08:15 (Senokot) 17.2 mg Q12H PRN PO 01/07/17 08:15 (Dulcolax Supp) 10 mg DAILY PRN RECTAL 01/07/17 08:15 (Lactulose Liq) 30 ml DAILY PRN PO 01/07/17 08:15 (NS Flush) 2 ml UNSCH PRN IV FLUSH 01/07/17 08:15 (NS Flush) 2 ml BID IV FLUSH 01/07/17 09:00 (Pepcid Inj) 10 mg Q12HR IV PUSH 01/07/17 09:00 (Duoneb Neb) 1 ampule Q4HR NEB PRN NEB 01/07/17 09:00 Piperacillin Sod/ Tazobactam Sod 100 ml @ 200 mls/hr Q6H IV 01/07/17 08:15 UNV Pharmacy Profile Note 0 ml @ 0 mls/hr UNSCH OTHER 01/07/17 08:15 (Oscal) 600 mg TID PEG 01/07/17 09:00 (Questran 4 Gm Pkt) 4 gm QID PRN PEG 01/07/17 09:00 (Ferrous Sulfate Liq) 220 mg BID PEG 01/07/17 09:00 (Citroma Liq) 300 ml DAILY PRN PEG 01/07/17 09:00 (Lopressor) 50 mg BID PEG 01/07/17 09:00 (Theragran M Tab) 1 tab DAILY PEG 01/07/17 09:15 Family History Mother- of a heart attack in his 60s Father- of a stroke in his 60s Brother- lung cancer in his 60s . Substance Use Tobacco: Extensive history of smoking quit in Alcohol: Never used alcohol Prescription med abuse: None Illicits:Denies . Psychosocial History Patient was born and raised in [place]. Patient is once to his Yoana Young for 47 years. Patient had two children,1 adult daughter and a son who at age 4. 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 Patient and his moved to [place] approximately 41/2 years ago. . Spiritual/Cultural Factors No restorationism affiliation. Family not willing to have a visit from rehabilitation construction specialist at this time. . (Benson Mcfadden) Living Will: Copy in medical record (Patient completed FIVE WISHES-designating his Yoana Young to be his Health Care Agent and his daughter Klarissa Guzman as an alternate Health Care Agent) Health Care Surrogate: Copy in medical record Durable Power of Landmen: Copy in medical record Date completed: Signed Five Wishes - February 07, 2016 DPOA-daughter- June 04, 2016 . Health Care Surrogate(s): Health Care Agent- Yoana Young. Alternate Health Care Agent- Daughter - Nara Guzman. Patient`s has opted out so Nara Guzman will serve as patient`s Health Care Agent. . Documented care wishes: According to signed FIVE WISHES- Patient does not want life support treatment if he is close to , or in a coma and not expected to wake up or recover, or if he has permanent and severe her brain damage and not expected to recover. If life support has been started, he wants it to be stopped. . Today's verbally stated goals: Family only wants patient to be treated with antibiotic and kept comfortable. . Family/friends goals: Family wants patient to be treated with antibiotics only and would want him to be discharged back to [facility] with [facility]. . Ethical and Legal Issues No ethical or legal issues identified at this time. . (Benson Mcfadden) Physical Exam Vital Signs Date Time Temp Pulse Resp B/P (MAP) Pulse Ox O2 Delivery O2 Flow Rate FiO2 01/07/17 08:35 95 21 01/07/17 07:15 86 20 96 Room Air 01/07/17 07:13 98.3 89 20 93/57 (69) 95 Room Air 01/07/17 06:41 90 16 100/59 (73) 97 Nasal Cannula 2.00 01/07/17 06:30 90 18 112/62 (79) 97 Nasal Cannula 2.00 01/07/17 06:21 86 18 107/59 (75) 98 Nasal Cannula 2.00 01/07/17 05:49 21 92 Room Air 01/07/17 05:29 97.3 93 24 106/64 (78) 01/07/17 01/08/17 19:00 07:00 Intake Total 2000 ml Balance 2000 ml Intake IV Total 2000 ml # Bowel Movements 1 Exam CONSTITUTIONAL/GENERAL: This is a frail, elderly patient, sleeping in no apparent distress. TUBES/LINES/DRAINS: PIV, FC,PEG tube SKIN: No jaundice, rashes, or lesions. Ecchymoses on upper extremities. No wounds seen anteriorly. Skin temperature appropriate. Not diaphoretic. HEAD: Atraumatic. Normocephalic. EYES: Pupils equal and round and reactive. No scleral icterus. No injection or drainage. Fundi not examined. ENT: Nose without bleeding or purulent drainage. Moist oral mucosa. NECK: Trachea midline. Supple, nontender. CARDIOVASCULAR: Regular rate and rhythm without murmurs, gallops, or rubs. No JVD. Peripheral pulses symmetric. RESPIRATORY/CHEST: Symmetric, unlabored respirations. Breath sounds equal bilaterally. Lungs rhonchi to auscultation. No wheezes, rales. GASTROINTESTINAL: Abdomen soft, non-tender, nondistended.No guarding. Bowel sounds present. PEG tube clamped. GENITOURINARY: Without palpable bladder distension. Mcginnis catheter in place. Noted dark colored urine in collection bag and clear light herb urine in FC tubing. MUSCULOSKELETAL: Extremities without clubbing, cyanosis, or edema.Right leg contracture noted. NEUROLOGICAL: Sleeping with minimal response to tactile stimuli.Patient not following commands. Aphasic. PSYCHIATRIC: No obvious anxiety/depression. no apparent hallucinations or other psychotic thought process. . (Benson Mcfadden) Diagnostic Tests Laboratory Laboratory Tests Test 01/07/17 05:38 01/07/17 08:45 White Blood Count 18.9 TH/MM3 (4.0-11.0) Red Blood Count 4.16 MIL/MM3 (4.50-5.90) Hemoglobin 12.1 GM/DL (13.0-17.0) Hematocrit 37.3 % (39.0-51.0) Mean Corpuscular Volume 89.6 FL (80.0-100.0) Mean Corpuscular Hemoglobin 29.1 PG (27.0-34.0) Mean Corpuscular Hemoglobin Concent 32.5 % (32.0-36.0) Red Cell Distribution Width 14.7 % (11.6-17.2) Platelet Count 198 TH/MM3 (150-450) Mean Platelet Volume 10.6 FL (7.0-11.0) Neutrophils (%) (Auto) 93.2 % (16.0-70.0) Lymphocytes (%) (Auto) 1.7 % (9.0-44.0) Monocytes (%) (Auto) 4.9 % (0.0-8.0) Eosinophils (%) (Auto) 0.1 % (0.0-4.0) Basophils (%) (Auto) 0.1 % (0.0-2.0) Neutrophils # (Auto) 17.7 TH/MM3 (1.8-7.7) Lymphocytes # (Auto) 0.3 TH/MM3 (1.0-4.8) Monocytes # (Auto) 0.9 TH/MM3 (0-0.9) Eosinophils # (Auto) 0.0 TH/MM3 (0-0.4) Basophils # (Auto) 0.0 TH/MM3 (0-0.2) CBC Comment DIFF FINAL Differential Comment Prothrombin Time 12.4 SEC (9.8-11.6) Prothromb Time International Ratio 1.1 RATIO Activated Partial Thromboplast Time 30.6 SEC (24.3-30.1) Urine Color YELLOW (YELLW/STRAW) Urine Turbidity HAZY (CLEAR) Urine pH 8.5 (5.0-8.5) Urine Specific [place] 1.010 (1.002-1.035) Urine Protein 30 mg/dL (NEG-TRACE) Urine Glucose (UA) NEG mg/dL (NEG) Urine Ketones NEG mg/dL (NEG) Urine Occult Blood MOD (NEG) Urine Nitrite NEG (NEG) Urine Bilirubin NEG (NEG) Urine Urobilinogen LESS THAN 2.0 MG/DL (LESS Urine Leukocyte Esterase LARGE (NEG) Urine RBC 57 /hpf (0-3) Urine WBC 19 /hpf (0-5) Urine Renal Epithelial Cells 1 /hpf (NONE) Urine Bacteria MOD /hpf (NONE) Urine Hyaline Casts 1 /lpf (RARE) Urine Mucus FEW /lpf (OCC) Microscopic Urinalysis Comment CATH-CULTURE IND Blood Urea Nitrogen 48 MG/DL (7-18) Creatinine 2.41 MG/DL (0.60-1.30) Random Glucose 150 MG/DL (74-106) Total Protein 6.8 GM/DL (6.4-8.2) Albumin 2.5 GM/DL (3.4-5.0) Calcium Level 9.4 MG/DL (8.5-10.1) Alkaline Phosphatase 316 U/L (45-117) Aspartate Amino Transf (AST/SGOT) 32 U/L (15-37) Alanine Aminotransferase (ALT/SGPT) 92 U/L (12-78) Total Bilirubin 0.9 MG/DL (0.2-1.0) Sodium Level 139 MEQ/L (136-145) Potassium Level 3.3 MEQ/L (3.5-5.1) Chloride Level 98 MEQ/L (98-107) Carbon Dioxide Level 21.2 MEQ/L (21.0-32.0) Anion Gap 20 MEQ/L (5-15) Estimat Glomerular Filtration Rate 27 ML/MIN (>89) Lactic Acid Level 10.6 mmol/L (0.4-2.0) Ammonia 55 MCMOL/L (11-32) Total Creatine Kinase 23 U/L (39-308) Troponin I 0.08 NG/ML (0.02-0.05) Thyroid Stimulating Hormone 3rd Gen 2.120 uIU/ML (0.358-3.740) (Benson Mcfadden) Result Diagram: 01/07/17 0538 01/07/17 0538 Microbiology Microbiology Date/Time Source Procedure Growth Status 01/07/17 05:38 Blood Peripheral Aerobic Blood Culture Pending Received 01/07/17 05:38 Blood Peripheral Anaerobic Blood Culture Pending Received 01/07/17 05:30 Blood Peripheral Aerobic Blood Culture Pending Received 01/07/17 05:30 Blood Peripheral Anaerobic Blood Culture Pending Received 01/07/17 05:38 Urine Catheterized Urine Urine Culture Pending Received Imaging Last Impressions Head CT 01/07/1735 Signed Impressions: Service Date/Time: Saturday, January 07, 2017 06:02 - CONCLUSION: 1. No acute findings. Atrophic brain. Charles Christensen MD Chest X-Ray 01/07/1735 Signed Impressions: Service Date/Time: Saturday, January 07, 2017 05:46 - CONCLUSION: No acute disease. Charles Christensen MD Abdomen/Pelvis CT 01/07/17 0000 Signed Impressions: Service Date/Time: Saturday, January 07, 2017 06:52 - CONCLUSION: 1. No abnormality is identified on this noncontrast examination to explain the patient's hematuria. No renal stones are seen. There is fullness of the collecting systems bilaterally. 2. Mild atelectasis versus consolidation at the lung bases. Nahum Blue MD Other Mcginnis catheter replaced 01/07/17 . (Benson Mcfadden) Patient/Family Conference Present at Family Conference: Patient`s - Yoana Young and patient`s daughter Nara Guzman . Family Conference Location: Bedside Issues Discussed: * Palliative care role, purpose, approach * Additional medical, psychosocial, and spiritual history * Patients general health, functional status, and cognitive changes in the months leading up to the current hospitalization * Patient/family understanding of the current medical problems, sepsis, dementia , DM Type2, COPD. * Patient/family understanding of prognosis * Patients goals of care as best understood from advance directives and/or conversations and/or values * Current medical treatment options and benefits/burdens of those options * Likely scenarios comparing ongoing aggressive care with a transition to comfort measures only * Questions answered to the best of my ability * Hospice philosophy and benefits * Palliative care contact information provided (Benson Mcfadden) Assessment and Plan Disease Oriented Problem List: (1) Sepsis secondary to UTI (2) COPD (chronic obstructive pulmonary disease) (3) Aphasia (4) Diabetes Symptom Scale: (1) Confusion 0-10 Scale: Unable to quantify Comment: Change in baseline mentation. . (2) Dysphagia 0-10 Scale: Unable to quantify Comment: Patient has a PEG tube, [facility] after he was fed apple sauce. . (3) Debility Pertinent Non-Medical Issues Psychosocial:Patient was born and raised in [place]. Patient is once to his Yoana Young for 47 years. Patient had two children,1 adult daughter and a son who at age 4. 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 Patient and his moved to [place] approximately 41/2 years ago. Spiritual:No restorationism affiliation Legal:Patient has signed FIVE WISHES Ethical issues impacting care: None identified at this time . Important Contacts Spouse- Yoana Young , Daughter- Nara Guzman Call daughter first . Prognosis Mr. Young is a 71 years old male with a past medical history of COPD, CVA, aphasia, dysphagia and a neurogenic bladder. [facility] a [facility]. Patient presented to the ED on 01/07/17 after he vomited and became nonverbal later on at the penitentiary which is not his norm. Patient is aphasic , has a peg tube and a chronic indwelling Mcginnis catheter. Patient health has continued to decline since his hospitalization in February of 2016. Patient currently being treated for sepsis secondary to UTI. Given ongoing multiple comorbidities, patient is at risk for further complications, deterioration and decline. Prognosis is guarded. . Code Status: No Code Plan PLAN: Legal decision maker: Patient is not able to participate in his medical decision making. Patient designated his Yoana Young as his Health Care Agent and his daughter Nara Guzman as his alternate Health Care Agent. Patient` s has opted out and Nara Guzman will make medical decisions for patient. Even though patient`s opted out, she still is involved with patient`s care and is agreeable with decisions made by her daughter. Goals: Aggressive short of No Code. Family wants patient to be treated with antibiotics and may want patient to be discharged back to [facility] with hospice. CODE STATUS: DNR SYMPTOMS: * Confusion- Multifactorial. Patient has a history of dementia. Baseline is aphasic, only mumbles incomprehensible words.Recent deviation from his norm. Possibly due to recurrent UTI. Patient on Zosyn and was given x1 dose Vancomycin. * Dysphagia-Patient has a PEG tube. Report of vomiting at [facility]iary. Possible aspiration. Patient is minimally responsive and has a high risk of aspiration. Recommending speech therapy evaluation if there is need for pleasure foods. * Debility - Progressing. History of prolonged hospitalization and recurrent UTI. Patient is bedbound, totally dependent on all his ADLs. Patient has right leg contracture. PT consulted. Patient is at risk for continued decline and debility. Palliative care will continue to follow the patient during hospital course as condition evolves, to assist patient/decision-maker with understanding of their medical conditions, weighing benefits/burdens of treatment options, for clarification of goals of treatment. Additionally will assist with any symptoms of palliative concern (Benson Mcfadden) Plan Above assessment and plan reviewed, patient evaluated in dual visit with ALANIS Espinoza. Agree with above assessment and plan. (Kiya Perez) Thank you for the opportunity to participate in the care of Mr. Young. (Benson Mcfadden) Attestation To help prompt me to consider important information that might be impacting todays encounter, some historical information from prior notes written by myself or my colleagues may have been brought forward into todays note. My signature on this note, however, is an attestation that I personally performed the exam noted today, and, unless otherwise dated, the interactions with patient , family, and staff as well as the review of records noted all occurred today. I also attest that the listed assessment and stated plan reflect my best clinical judgment today based on the combination of historical information, prior notes, and todays exam/ interactions.The level of evaluation / management services and/or time that is claimed for this visit does NOT include work or time done by myself or other providers on previous visits. . (Benson Mcfadden) Benson Mcfadden Jan 07, 2017 10:22 Kiya Perez Jan 07, 2017 16:52
[2017-01-07] MEDS: ENOXAPARIN SODIUM 30 MG/0.3 ML SYRINGE SQ SCH (11:36)
[2017-01-07] MEDS: FERROUS SULFATE 300 MG /5ML UDC PEG SCH (11:37)
[2017-01-07] MEDS: INSULIN ASPART SUPPLEMENTAL SCALE SQ SCH ×3 (12:16→21:00)
[2017-01-07] MEDS: LACTULOSE SYRUP 20 GM/30 ML CUP PEG SCH ×3 (12:16→23:21)
--- NOTE | 2017-01-07 13:03 | PQ ---
Physician Query Response Document PATIENT: TRENT BEACH : 1945 ADMIT DATE: 01/07/2017 8:23 AM DISCH DATE: RESPONDING PROVIDER #: KAMAR QUERY TEXT: Cause and Effect Relationship Please clarify in documentation the relationship, if any, between Sepsis/UTI and Chronic indwelling palomo catheter____ Such as: -- Conditions are due to or associated -- Unrelated to each other -- Other, please specify The patient's Clinical Indicators include: H WBC 18.9 UA Hazy Leukocyte Estrace Large Urine WBC 19 Bacteria -Moderate Query created by: Carley Ann on 01/07/2017 12:42 PM RESPONSE TEXT: Chronic indwelling catheters increase chronic risk of uti- therefore poor palomo care at the [facility] CAN I NCREASE RISK OF UTI AND SEPSIS WHICH IS SUSPECTED HERE Electronically signed by: Oz Chin 01/07/2017 12:59 PM
[2017-01-07 13:16] LABS: MAGNESIUM 2.1 MG/DL (1.5-2.5)
[2017-01-07 14:45] LABS: LACTIC ACID GHOST NOT REPORTABLE
--- NOTE | 2017-01-07 15:09 | OTSOAPIP ---
TIME SESSION COMPLETED: PM RECEIVED OCCUPATIONAL THERAPY ORDERS. ATTEMPTED TO SEE PATIENT, HOWEVER UPON ARRIVAL SPOKE WITH ROBERT LANDAVERDE REQUESTS TO HOLD EVALUATION PATIENT PRESENTS WITH ALTERED MENTAL STATUS AND IS NOT MEDICALLY STABLE. ALSO REPORTS THERE IS A HOSPICE CONSULT. WILL FOLLOW UP WITH PATIENT. INTERDISCIPLINARY COMMUNICATION: SPOKE WITH ROBERT LANDAVERDE Therapist: Toya Rosenberg, OTR/L Signature on file
[2017-01-07] MEDS: PIPERACIL-TAZO 4.5 GM PREMIX 100 ML IV SCH ×2 (15:49→23:19)
--- NOTE | 2017-01-07 19:20 | PD ---
Data Data Last Documented VS Vital Signs Date Time Temp Pulse Resp B/P (MAP) Pulse Ox O2 Delivery O2 Flow Rate FiO2 01/07/17 07:15 86 20 96 Room Air 01/07/17 07:13 98.3 93/57 (69) 01/07/17 06:41 2.00 Orders Orders Ammonia (01/07/17 05:35) Complete Blood Count With Diff (01/07/17 05:35) Comprehensive Metabolic Panel (01/07/17 05:35) Creatine Kinase (Cpk) (01/07/17 05:35) Prothrombin Time / Inr (Pt) (01/07/17 05:35) Act Partial Throm Time (Ptt) (01/07/17 05:35) Troponin I (01/07/17 05:35) Thyroid Stimulating Hormone (01/07/17 05:35) Urinalysis - C+S If Indicated (01/07/17 05:35) Lactic Acid Sepsis Protocol (01/07/17 05:35) Blood Culture (01/07/17 05:35) Chest, Single Ap (01/07/17 05:35) Ct Brain W/O Iv Contrast(Rout) (01/07/17 05:35) Blood Glucose (01/07/17 05:35) Ecg Monitoring (01/07/17 05:35) Iv Access Insert/Monitor (01/07/17 05:35) Oximetry (01/07/17 05:35) Electrocardiogram (01/07/17 ) Urine Culture (01/07/17 05:38) Vancomycin Inj (Vancomycin Inj) (01/07/17 06:45) Piperacil-Tazo 2.25 Gm Premix (Zosyn 2.2 (01/07/17 06:45) Sodium Chlor 0.9% 1000 Ml Inj (Ns 1000 M (01/07/17 06:45) Ct Abd/Pel W/O Iv Contrast (01/07/17 ) Sodium Chlor 0.9% 1000 Ml Inj (Ns 1000 M (01/07/17 07:00) Sodium Chlor 0.9% 1000 Ml Inj (Ns 1000 M (01/07/17 07:00) Consult Palliative Care (01/07/17 ) (Hub Use Only)Inp Phy Cons/Ref (01/07/17 ) Comprehensive Metabolic Panel (01/08/17 06:00) Free Thyroxine (T4) (01/08/17 06:00) Hemoglobin (Hgb) A1c (01/08/17 06:00) Magnesium (Mg) (01/08/17 06:00) Phosphorus (Po4) (01/08/17 06:00) Thyroid Stimulating Hormone (01/08/17 06:00) Complete Blood Count With Diff (01/08/17 06:00) Insulin Aspart Supplemtl Scale (Novolog (01/07/17 12:00) Bedside Glucose ELAN.CSUGAR&03 (01/07/17 08:14) Blood Glucose Goal (Criteria) (01/07/17 08:14) Hypoglycemia 70 Mg/Dl Or < (01/07/17 08:14) Notify Dr: Other (01/07/17 08:14) Dextrose 50% In Leonard (Vial) Inj (D50w (Vi (01/07/17 08:15) Glucagon Inj (Glucagon Inj) (01/07/17 08:15) Admit To Inpatient (01/07/17 ) Code Status (01/07/17 08:14) Vital Signs (Adult) Q4H (01/07/17 08:14) Neuro Checks Q4H (01/07/17 08:14) Activity Bed Rest (01/07/17 08:14) Prisoner Classification Interviewer / Telemetry .CONTINUOUS (01/07/17 08:14) Intake + Output ELAN.QSHIFT (01/07/17 08:14) Diet Npo (01/07/17 Breakfast) Sodium Chlor 0.9% 1000 Ml Inj (Ns 1000 M (01/07/17 08:14) Sodium Chloride 0.9% Flush (Ns Flush) (01/07/17 08:15) Sodium Chloride 0.9% Flush (Ns Flush) (01/07/17 09:00) Acetaminophen (Tylenol) (01/07/17 08:15) Ondansetron Inj (Zofran Inj) (01/07/17 08:15) Prochlorperazine Supp (Compazine Supp) (01/07/17 08:15) Creatine Kinase (Cpk) (01/07/17 08:14) Creatine Kinase (Cpk) (01/07/17 14:14) Creatine Kinase (Cpk) (01/07/17 20:14) Troponin I (01/07/17 08:14) Troponin I (01/07/17 14:14) Troponin I (01/07/17 20:14) Resp Oxygen Gonzales C Titrat 1-4 L (01/07/17 ) Pt Request For Service (01/07/17 08:14) Ot Request For Service (01/07/17 08:14) Dietary (Dietitian) Consult (01/07/17 08:14) Case Management Consult (01/07/17 08:14) Scd Bilateral/Knee High ELAN.BID (01/07/17 08:14) Rafal Bilateral/Knee High ELAN.QSHIFT (01/07/17 08:30) Acetaminophen (Tylenol) (01/07/17 08:15) Oxycodone-Acetamin 5-325 Mg (Percocet (01/07/17 08:15) Oxycodone-Acetamin 10-325 Mg (Percocet 1 (01/07/17 09:30) Morphine Inj (Morphine Inj) (01/07/17 09:30) Morphine Inj (Morphine Inj) (01/07/17 09:30) Naloxone Inj (Narcan Inj) (01/07/17 08:15) Docusate Sodium-Senna (Caitlin-Colace) (01/07/17 09:00) Magnesium Hydroxide Liq (Milk Of Magnesi (01/07/17 08:15) Sennosides (Senokot) (01/07/17 08:15) Bisacodyl Supp (Dulcolax Supp) (01/07/17 08:15) Lactulose Liq (Lactulose Liq) (01/07/17 08:15) Admit To Inpatient (01/07/17 ) Vital Signs (Adult) ELAN.Q4H (01/07/17 08:14) Neuro Checks . ORDERED (01/07/17 08:14) Intake + Output 06,14,22 (01/07/17 08:14) Sodium Chloride 0.9% Flush (Ns Flush) (01/07/17 08:15) Sodium Chloride 0.9% Flush (Ns Flush) (01/07/17 09:00) Famotidine Inj (Pepcid Inj) (01/07/17 09:00) Lactic Acid Sepsis Protocol (01/07/17 12:00) Resp Oxygen Gonzales C Titrat 1-4 L (01/07/17 ) Case Management Consult (01/07/17 ) Vancomycin Consult Pharmacy (Vancomycin (01/07/17 08:15) Inpatient Certification (01/07/17 ) Admit Order (Ed Use Only) (01/07/17 08:21) Albuterol-Ipratropium Neb (Duoneb Neb) (01/07/17 09:00) Labs Laboratory Tests Test 01/07/17 05:38 White Blood Count 18.9 TH/MM3 Red Blood Count 4.16 MIL/MM3 Hemoglobin 12.1 GM/DL Hematocrit 37.3 % Mean Corpuscular Volume 89.6 FL Mean Corpuscular Hemoglobin 29.1 PG Mean Corpuscular Hemoglobin Concent 32.5 % Red Cell Distribution Width 14.7 % Platelet Count 198 TH/MM3 Mean Platelet Volume 10.6 FL Neutrophils (%) (Auto) 93.2 % Lymphocytes (%) (Auto) 1.7 % Monocytes (%) (Auto) 4.9 % Eosinophils (%) (Auto) 0.1 % Basophils (%) (Auto) 0.1 % Neutrophils # (Auto) 17.7 TH/MM3 Lymphocytes # (Auto) 0.3 TH/MM3 Monocytes # (Auto) 0.9 TH/MM3 Eosinophils # (Auto) 0.0 TH/MM3 Basophils # (Auto) 0.0 TH/MM3 CBC Comment DIFF FINAL Differential Comment Prothrombin Time 12.4 SEC Prothromb Time International Ratio 1.1 RATIO Activated Partial Thromboplast Time 30.6 SEC Urine Color YELLOW Urine Turbidity HAZY Urine pH 8.5 Urine Specific [place] 1.010 Urine Protein 30 mg/dL Urine Glucose (UA) NEG mg/dL Urine Ketones NEG mg/dL Urine Occult Blood MOD Urine Nitrite NEG Urine Bilirubin NEG Urine Urobilinogen LESS THAN 2.0 MG/DL Urine Leukocyte Esterase LARGE Urine RBC 57 /hpf Urine WBC 19 /hpf Urine Renal Epithelial Cells 1 /hpf Urine Bacteria MOD /hpf Urine Hyaline Casts 1 /lpf Urine Mucus FEW /lpf Microscopic Urinalysis Comment CATH-CULTURE IND Blood Urea Nitrogen 48 MG/DL Creatinine 2.41 MG/DL Random Glucose 150 MG/DL Total Protein 6.8 GM/DL Albumin 2.5 GM/DL Calcium Level 9.4 MG/DL Alkaline Phosphatase 316 U/L Aspartate Amino Transf (AST/SGOT) 32 U/L Alanine Aminotransferase (ALT/SGPT) 92 U/L Total Bilirubin 0.9 MG/DL Sodium Level 139 MEQ/L Potassium Level 3.3 MEQ/L Chloride Level 98 MEQ/L Carbon Dioxide Level 21.2 MEQ/L Anion Gap 20 MEQ/L Estimat Glomerular Filtration Rate 27 ML/MIN Lactic Acid Level 10.6 mmol/L Ammonia 55 MCMOL/L Total Creatine Kinase 23 U/L Troponin I 0.08 NG/ML Thyroid Stimulating Hormone 3rd Gen 2.120 uIU/ML MDM Supervised Visit with LESTER: No Narrative Course This is a 71-year-old male who has a history of suspected anoxic brain injury who is mostly bedbound and poorly interactive who presents to the emergency department with severe sepsis. His lactic acid initially was 10. Source seems to be urine. He was given broad-spectrum antibiotics and IV hydration. I spoke to the patient's daughter who says she is the healthcare surrogate and she said the patient would not want to be resuscitated or intubated in that he would not be happy the way he was living currently. I think it palliative care consult would most benefit this family. Patient will be admitted and palliative care will be consulted. Diagnosis Primary Impression: Sepsis secondary to UTI Admitting Information Admitting Physician Requests: Admit Marisel Gu MD Jan 07, 2017 19:20
[2017-01-08] VITALS (8 sets, daily range): BP systolic 100–131; BP diastolic 55–78; PULSE 80–95; RESP 17–21; TEMP 96.4–99; O2SAT 93–99
[2017-01-08] MEDS: FERROUS SULFATE 300 MG /5ML UDC PEG SCH ×3 (00:06→22:11)
[2017-01-08] MEDS: SODIUM CHLORIDE 0.9% FLUSH 10 ML FLUSH IV FLUSH SCH ×3 (00:07→21:00)
[2017-01-08] MEDS: FAMOTIDINE 20 MG/2 ML VIAL IV PUSH SCH ×3 (00:07→22:18)
[2017-01-08] MEDS: SODIUM CHLOR 0.9% 1000 ML INJ 1,000 ML IV SCH ×2 (00:07→07:34)
[2017-01-08 02:57] LABS: ANION GAP 9 MEQ/L (5-15); AST (GOT) 18 U/L (15-37); BICARBONATE 23.5 MEQ/L (21.0-32.0); BLOOD UREA NITROGEN 45 MG/DL (7-18); CHLORIDE 114 MEQ/L (98-107); MAGNESIUM 2.2 MG/DL (1.5-2.5); POTASSIUM 3.6 MEQ/L (3.5-5.1); SODIUM (NA) 146 MEQ/L (136-145)
[2017-01-08 03:17] LABS: ALKALINE PHOSPHATASE 178 U/L (45-117); ALT (GPT) 57 U/L (12-78); CREATINE KINASE 46 U/L (39-308); FREE T4 1.36 NG/DL (0.76-1.46); GLOMERULAR FILTRATION RATE 52 ML/MIN (>89); TOTAL BILIRUBIN ADULT 0.5 MG/DL (0.2-1.0)
[2017-01-08] MEDS: PIPERACIL-TAZO 4.5 GM PREMIX 100 ML IV SCH ×4 (05:31→22:11)
[2017-01-08] MEDS: LACTULOSE SYRUP 20 GM/30 ML CUP PEG SCH ×4 (07:33→22:11)
[2017-01-08] MEDS: CALCIUM CARBONATE 1.25 GM (CA 500 MG) TAB PEG SCH ×3 (07:33→16:12)
[2017-01-08] MEDS: MULTIVITAMINS/MINERALS THERAPEUTIC TAB PEG SCH (07:34)
[2017-01-08] MEDS: METOPROLOL TARTRATE 50 MG TAB PEG SCH ×2 (07:34→22:10)
[2017-01-08] MEDS: INSULIN ASPART SUPPLEMENTAL SCALE SQ SCH ×4 (07:34→21:00)
[2017-01-08 08:59] LABS: AUTOMATED NEUTROPHIL # 8.2 TH/MM3 (1.8-7.7); BASOPHIL % 0.3 % (0.0-2.0); EOSINOPHIL # 0.1 TH/MM3 (0-0.4); EOSINOPHIL % 0.9 % (0.0-4.0); HEMATOCRIT 26.9 % (39.0-51.0); LYMPH % 8.1 % (9.0-44.0); LYMPHOCYTE # 0.8 TH/MM3 (1.0-4.8); MEAN CORPUSCULAR HEMOGLOBIN 29.7 PG (27.0-34.0); MEAN CORPUSCULAR HGB CONC 33.4 % (32.0-36.0); MONO % 4.6 % (0.0-8.0); NEUT % 86.1 % (16.0-70.0); PLATELET COUNT 98 TH/MM3 (150-450); RED BLOOD COUNT 3.02 MIL/MM3 (4.50-5.90); RED CELL DISTRIBUTION WIDTH 14.5 % (11.6-17.2); WHITE BLOOD COUNT 9.5 TH/MM3 (4.0-11.0)
[2017-01-08] MEDS: DOCUSATE SODIUM 50 MG/SENNA 8.6 MG TAB PO SCH ×2 (08:59→21:00)
[2017-01-08] MEDS: SODIUM CHLOR 0.45% 1000 ML INJ 1,000 ML IV SCH ×2 (09:00→17:43)
[2017-01-08 09:01] LABS: HEMO FLAGS AUTO DIFF
[2017-01-08] MEDS: ENOXAPARIN SODIUM 30 MG/0.3 ML SYRINGE SQ SCH (09:01)
[2017-01-08 11:16] LABS: BANDS 26 % (0-6); METAMYELOCYTES 2 % (0-1); NEUTROPHIL # MANUAL DIFF 8.7 TH/MM3 (1.8-7.7); POLYS (SEG NEUTROPHILS) 64 % (16-70); TOXIC GRANULATION 1+ (NORMAL); WBC DIFF SAMPLE 100
[2017-01-08 11:17] LABS: PLATELET ESTIMATE SMEAR LOW (NORMAL); PLATELET MORPHOLOGY NORMAL (NORMAL); SCAN/DIFF FINAL DIFF MANUAL
--- NOTE | 2017-01-08 11:56 | HHI.PR ---
Subjective Remarks In bed family at bedside. Patient is nonverbal per family at his baseline. He does opened eyes with family. VSS. Per family he is noted holding his breath on/off and agitated at times. Objective Vitals Vital Signs Date Time Temp Pulse Resp B/P (MAP) Pulse Ox O2 Delivery O2 Flow Rate FiO2 01/08/17 09:18 95 21 01/08/17 08:00 97.9 80 18 103/59 (74) 93 01/08/17 04:24 96.4 95 20 131/78 (95) 97 01/08/17 00:22 97.9 88 18 105/55 (72) 98 01/07/17 20:35 96.5 82 18 98/57 (71) 96 01/07/17 16:00 98.9 84 16 105/56 (72) 97 I/O 01/07/17 01/07/17 01/07/17 01/08/17 01/08/17 01/08/17 06:59 14:59 22:59 06:59 14:59 22:59 Intake Total 3300 ml 1000 ml 100 ml Output Total 900 ml 775 ml 1100 ml Balance -900 ml 3300 ml 225 ml -1100 ml 100 ml Intake Oral 0 ml IV Total 3300 ml 1000 ml 100 ml Output Urine Total 900 ml 775 ml 1100 ml # Bowel Movements 1 2 3 Result Diagram: 01/08/17 0825 01/08/17 021 Imaging Last Impressions Head CT 01/07/17534 Signed Impressions: Service Date/Time: Saturday, January 07, 2017 06:02 - CONCLUSION: 1. No acute findings. Atrophic brain. Charles Christensen MD Chest X-Ray 01/07/17534 Signed Impressions: Service Date/Time: Saturday, January 07, 2017 05:46 - CONCLUSION: No acute disease. Charles Christensen MD Abdomen/Pelvis CT 01/07/17 0000 Signed Impressions: Service Date/Time: Saturday, January 07, 2017 06:52 - CONCLUSION: 1. No abnormality is identified on this noncontrast examination to explain the patient's hematuria. No renal stones are seen. There is fullness of the collecting systems bilaterally. 2. Mild atelectasis versus consolidation at the lung bases. Nahum Blue MD Objective Remarks GENERAL: This is a well-nourished, well-developed patient, in no apparent distress.NONVERBAL- FOLLOWS NO COMMANDS AT THIS TIME CARDIOVASCULAR: Regular rate and rhythm without murmurs, gallops, or rubs. S1, S2 NO S3 OR S4 RESPIRATORY: Coarse breath sounds bilaterally. Breath sounds equal bilaterally. No wheezes, rhonchi's bilaterally coarse GASTROINTESTINAL: Abdomen soft, non-tender, nondistended. No hepato-splenomegaly , or palpable masses. No guarding. PEG tube Mcginnis catheter in place MUSCULOSKELETAL: Extremities without clubbing, cyanosis, or edema. No joint tenderness, effusion, or edema noted. No calf tenderness. Negative Homans sign bilaterally. Has bilateral contractURES NEUROLOGICAL: Not awake and sleepy, nonverbal. Some contractures. Not able to assess insight and judgment/ behavior, motor, CN A/P Problem List: (1) Diabetes ICD Code: E11.9 - Type 2 diabetes mellitus without complications (2) CVA (cerebral vascular accident) ICD Code: I63.9 - Cerebral infarction, unspecified (3) Aphasia ICD Code: R47.01 - Aphasia (4) Hypertension ICD Code: I10 - Essential (primary) hypertension (5) COPD (chronic obstructive pulmonary disease) ICD Code: J44.9 - Chronic obstructive pulmonary disease, unspecified (6) Sepsis secondary to UTI ICD Code: A41.9 - Sepsis, unspecified organism; N39.0 - Urinary tract infection , site not specified Status: Acute Assessment and Plan Encephalopathy multiple etiology patient with sepsis, previous CVA, high ammonia Elevated ammonia level. started lactulose titrate to 2-3 BM daily. Monitor ammonia levels Sepsis 2/2 indwelling catheter related UTI, bacteremia CT abd/pelvis reviewed: 1. No abnormality is identified on this noncontrast examination to explain the patient's hematuria. No renal stones are seen. There is fullness of the collecting systems bilaterally. 2. Mild atelectasis versus consolidation at the lung bases. CXR reviewed: No evidence of mass, infiltrate or effusion. CT brain reviewed: Marked central and cortical atrophy with dilatation of ventricular and sulcal spaces. There is no parenchymal hemorrhage, acute infarction or mass lesion identified. There are no extra-axial fluid collections appreciated. The posterior fossa is unremarkable with midline fourth ventricle. The portion of the orbits and paranasal sinuses visualized are unremarkable. Continue zosyn, vanco Blood cultures 4/4 bottles with GNR. Consult ID for eval Monitor VS DM insulin dependent On lantus at home. Will hold lantus at this time as patient was noted hypoglycemic, start tube feeding per diatician recommendations. Accu checks, ISS Dysphagia: on tube feedings, ST ff Hypokalemia Will replace via PEG. Monitor and replace as need. Hypertension: cont home meds as appropriate. 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 H/o extensive tobacco use. Continue duonebs GUARDED PROGNOSIS Code Status DNR Continue on DVT prophylaxis with Lovenox 30 mg subcutaneous daily Continue on Pepcid for GI prophylaxis Yarelis Dodge MD Jan 08, 2017 11:56
[2017-01-08 12:55] LABS: HEMOGLOBIN A1a 0.8 %; HEMOGLOBIN A1b 1.2 %; HEMOGLOBIN Ao 87.4 %; HEMOGLOBIN LA1C 1.7 %; HEMOGLOBIN P3 4.9 %
[2017-01-08] MEDS: FREE WATER G-TUBE SCH ×2 (13:15→22:00)
--- NOTE | 2017-01-08 13:54 | MB ---
cc: TITO HENSLEY MD DATE OF CONSULTATION: 01/08/2017 REQUESTING PHYSICIAN: Dr. Jaime. REASON FOR CONSULTATION: Bacteremia. HISTORY OF PRESENT ILLNESS: This is a 71-year-old white male who was brought to the emergency department from a retirement facility with altered mental status. The patient is nonverbal. He was felt to possibly have aspirated on feet and reportedly vomited after being given apple juice prior to being brought to emergency department. The patient's daughter and is in the room. He tells me is mostly sleepy when he is at the retirement. They report that he seldom would open his eyes. In the emergency department he was found to have blood pressure of 93/67. His white blood cell count was elevated at 18.9 and creatinine was 2.41, lactic acid level was 10.6. Chest x-ray Showed no acute disease. Urinalysis showed large amount of leukocyte esterase and 19 white cells. Blood culture has gram-negative dmitriy in four or four bottles. Urine culture is pending. The patient is currently receiving IV antibiotics. He is on piperacillin / tazobactam. Vancomycin dose was also given on 01/07/2017, the patient's family states that he has cough but is not producing sputum. PAST MEDICAL HISTORY 1. Hypertension 2. Diabetes mellitus 3. Cerebrovascular accident 4. Dysphasia 5. Chronic obstructive pulmonary disease. 6. Gastroesophageal reflux disease. 7. Neurogenic bladder 8. History of percutaneous endoscopic gastrostomy tube 9. Urinary tract infections 10. Chronic indwelling Mcginnis catheter. ALLERGIES NO KNOWN DRUG ALLERGIES. MEDICATIONS: 1. Piperacillin / tazobactam 2. Lactulose 3. Caitlin-Colace 4. Lovenox 5. Theragran 6. Pepcid 7. Lopressor 8. Ferrous sulfate. SOCIAL HISTORY Patient is a retirement resident. No tobacco, no alcohol. No illicit drugs. FAMILY HISTORY Noncontributory. REVIEW OF SYSTEMS Review of systems unable to obtain. PHYSICAL EXAMINATION: IN GENERAL: This is a well-developed male who is in no acute distress. He is currently somnolent and not arousing. VITAL SIGNS: Temperature 97.9, blood pressure 103/59, respirations 18, heart rate 80. HEAD, EYES, EARS, NOSE, AND THROAT: Head is atraumatic. Extraocular movements cannot be fully assessed, since the patient cannot cooperate. No icterus. Oropharynx dry mucosa. No thrush. NECK: No adenopathy. LUNGS: Decreased breath sounds throughout. HEART: Distant S1-S2 without audible murmurs. ABDOMEN: Bowel sounds present, soft, nontender. RECTAL: Not performed. EXTREMITIES: No clubbing, cyanosis or edema. The right lower extremity is somewhat contracted. SKIN: No rash. NEUROLOGIC: Unable to assess. PSYCHIATRIC: Psych unable to assess. LABORATORY DATA WBC 9.5, platelets 98, hemoglobin 9.0, 86% neutrophils, creatinine 1.36, BUN 45, estimated GFR 52. CT scan of the abdomen and pelvis showed no abnormalities of the abdomen. There was mild atelectasis versus consolidation at the lung bases. IMPRESSION 1. Gram-negative sepsis. 2. Urinary tract infection. 3. Decreased mental status secondary to infection. 4. Leukocytosis. RECOMMENDATIONS 1. Continue piperacillin / tazobactam. The patient's white blood cell count improved and therefore he may be responding to current antibiotic. 2. Monitor culture for identity and sensitivity of the gram-negative bacteria. 3. Follow the urine culture. 4. Monitor the clinical response. 5. The plan has been discussed with the patient's daughter and who is at bedside. Thank you this consultation. The patient's progress will be monitored and further recommendations will be given upon followup when necessary. Tito Hensley MD FD/vivian /11:12 AM /1:40 PM
[2017-01-09] VITALS (7 sets, daily range): BP systolic 118–133; BP diastolic 56–67; PULSE 65–83; RESP 17–21; TEMP 97.7–99.9; O2SAT 94–98
[2017-01-09] MEDS: PIPERACIL-TAZO 4.5 GM PREMIX 100 ML IV SCH ×2 (04:12→08:36)
[2017-01-09] MEDS: SODIUM CHLOR 0.45% 1000 ML INJ 1,000 ML IV SCH ×2 (05:00→14:25)
[2017-01-09] MEDS: FREE WATER G-TUBE SCH ×3 (06:00→21:35)
[2017-01-09 07:59] LABS: AUTOMATED NEUTROPHIL # 7.2 TH/MM3 (1.8-7.7); BASOPHIL % 0.3 % (0.0-2.0); EOSINOPHIL # 0.2 TH/MM3 (0-0.4); EOSINOPHIL % 2.3 % (0.0-4.0); HEMATOCRIT 26.7 % (39.0-51.0); LYMPHOCYTE # 0.5 TH/MM3 (1.0-4.8); MEAN CELL VOLUME 88.4 FL (80.0-100.0); MEAN CORPUSCULAR HEMOGLOBIN 29.8 PG (27.0-34.0); MEAN CORPUSCULAR HGB CONC 33.7 % (32.0-36.0); MONO % 4.3 % (0.0-8.0); NEUT % 87.1 % (16.0-70.0); PLATELET COUNT 89 TH/MM3 (150-450); RED BLOOD COUNT 3.02 MIL/MM3 (4.50-5.90); RED CELL DISTRIBUTION WIDTH 14.7 % (11.6-17.2); WHITE BLOOD COUNT 8.2 TH/MM3 (4.0-11.0)
[2017-01-09] MEDS: INSULIN ASPART SUPPLEMENTAL SCALE SQ SCH ×4 (08:00→21:00)
[2017-01-09 08:02] LABS: HEMO FLAGS AUTO DIFF
[2017-01-09 08:31] LABS: BICARBONATE 23.6 MEQ/L (21.0-32.0)
[2017-01-09 08:34] LABS: POTASSIUM 2.9 MEQ/L (3.5-5.1)
[2017-01-09] MEDS: FERROUS SULFATE 300 MG /5ML UDC PEG SCH ×2 (08:36→21:35)
[2017-01-09] MEDS: LACTULOSE SYRUP 20 GM/30 ML CUP PEG SCH ×4 (08:36→21:35)
[2017-01-09] MEDS: METOPROLOL TARTRATE 50 MG TAB PEG SCH ×2 (08:37→21:35)
[2017-01-09] MEDS: CALCIUM CARBONATE 1.25 GM (CA 500 MG) TAB PEG SCH ×3 (08:37→17:06)
[2017-01-09] MEDS: DOCUSATE SODIUM 50 MG/SENNA 8.6 MG TAB PO SCH ×2 (08:37→21:00)
[2017-01-09] MEDS: ENOXAPARIN SODIUM 30 MG/0.3 ML SYRINGE SQ SCH (08:37)
[2017-01-09] MEDS: MULTIVITAMINS/MINERALS THERAPEUTIC TAB PEG SCH (08:37)
[2017-01-09] MEDS: FAMOTIDINE 20 MG/2 ML VIAL IV PUSH SCH ×2 (08:38→21:35)
[2017-01-09] MEDS: SODIUM CHLORIDE 0.9% FLUSH 10 ML FLUSH IV FLUSH SCH ×2 (08:38→21:00)
[2017-01-09 09:22] LABS: PLATELET ESTIMATE SMEAR LOW (NORMAL); PLATELET MORPHOLOGY NORMAL (NORMAL); SCAN/DIFF AUTO DIFF CONFIRMED
[2017-01-09] MEDS ORDERED: POTASSIUM BICARBONATE 25 MEQ EFFERVESCENT TAB PO ONE ×2 (09:45)
--- NOTE | 2017-01-09 09:50 | HHI.PR ---
Subjective Remarks With low K replaced Patient in bed, opens eyes at times. Nonverbal at baseline. No events overnight. Objective Vitals Vital Signs Date Time Temp Pulse Resp B/P (MAP) Pulse Ox O2 Delivery O2 Flow Rate FiO2 01/09/17 08:00 99.9 83 20 126/67 (86) 95 01/09/17 04:26 99.9 78 21 133/63 (86) 98 01/09/17 00:22 99.8 65 17 119/56 (77) 94 01/08/17 20:30 96.6 82 21 124/56 (78) 98 01/08/17 20:00 83 01/08/17 18:35 21 01/08/17 16:00 99.0 90 17 125/63 (83) 96 01/08/17 12:00 97.4 80 17 100/58 (72) 99 I/O 01/08/17 01/08/17 01/08/17 01/09/17 01/09/17 01/09/17 07:00 15:00 23:00 07:00 15:00 23:00 Intake Total 100 ml 473 ml 338 ml Output Total 1100 ml 1300 ml 1200 ml Balance -1100 ml 100 ml -827 ml -862 ml Intake Oral 0 ml IV Total 100 ml Tube Feeding 273 ml 338 ml Tube Irrigant 200 ml Output Urine Total 1100 ml 1300 ml 1200 ml # Bowel Movements 3 1 1 Result Diagram: 01/09/1772301/09/17723 Imaging Last Impressions Head CT 01/07/17534 Signed Impressions: Service Date/Time: Saturday, January 07, 2017 06:02 - CONCLUSION: 1. No acute findings. Atrophic brain. Charles Christensen MD Chest X-Ray 01/07/1735 Signed Impressions: Service Date/Time: Saturday, January 07, 2017 05:46 - CONCLUSION: No acute disease. Charles Christensen MD Abdomen/Pelvis CT 01/07/17 0000 Signed Impressions: Service Date/Time: Saturday, January 07, 2017 06:52 - CONCLUSION: 1. No abnormality is identified on this noncontrast examination to explain the patient's hematuria. No renal stones are seen. There is fullness of the collecting systems bilaterally. 2. Mild atelectasis versus consolidation at the lung bases. Nahum Blue MD Objective Remarks GENERAL: This is a well-nourished, well-developed patient, in no apparent distress.NONVERBAL- FOLLOWS NO COMMANDS AT THIS TIME CARDIOVASCULAR: Regular rate and rhythm without murmurs, gallops, or rubs. S1, S2 NO S3 OR S4 RESPIRATORY: Coarse breath sounds bilaterally. Breath sounds equal bilaterally. No wheezes, rhonchi's bilaterally coarse GASTROINTESTINAL: Abdomen soft, non-tender, nondistended. No hepato-splenomegaly , or palpable masses. No guarding. PEG tube Mcginnis catheter in place MUSCULOSKELETAL: Extremities without clubbing, cyanosis, or edema. No joint tenderness, effusion, or edema noted. No calf tenderness. Negative Homans sign bilaterally. Has bilateral contractURES NEUROLOGICAL: Not awake and sleepy, nonverbal. Some contractures. Not able to assess insight and judgment/ behavior, motor, CN A/P Problem List: (1) Diabetes ICD Code: E11.9 - Type 2 diabetes mellitus without complications (2) CVA (cerebral vascular accident) ICD Code: I63.9 - Cerebral infarction, unspecified (3) Aphasia ICD Code: R47.01 - Aphasia (4) Hypertension ICD Code: I10 - Essential (primary) hypertension (5) COPD (chronic obstructive pulmonary disease) ICD Code: J44.9 - Chronic obstructive pulmonary disease, unspecified (6) Sepsis secondary to UTI ICD Code: A41.9 - Sepsis, unspecified organism; N39.0 - Urinary tract infection , site not specified Status: Acute Assessment and Plan Encephalopathy multiple etiology patient with sepsis, previous CVA, high ammonia Elevated ammonia level. started lactulose titrate to 2-3 BM daily. Monitor ammonia levels Sepsis 2/2 indwelling catheter related UTI, bacteremia CT abd/pelvis reviewed: 1. No abnormality is identified on this noncontrast examination to explain the patient's hematuria. No renal stones are seen. There is fullness of the collecting systems bilaterally. 2. Mild atelectasis versus consolidation at the lung bases. CXR reviewed: No evidence of mass, infiltrate or effusion. CT brain reviewed: Marked central and cortical atrophy with dilatation of ventricular and sulcal spaces. There is no parenchymal hemorrhage, acute infarction or mass lesion identified. There are no extra-axial fluid collections appreciated. The posterior fossa is unremarkable with midline fourth ventricle. The portion of the orbits and paranasal sinuses visualized are unremarkable. Continue zosyn, vanco Blood cultures /4 bottles with GNR. Consult ID for eval Monitor VS DM insulin dependent On lantus at home. Will hold lantus at this time as patient was noted hypoglycemic, start tube feeding per diatician recommendations. Accu checks, ISS Dysphagia: on tube feedings, ST ff Hypokalemia Will replace via PEG. Monitor and replace as need. Hypertension: cont home meds as appropriate. 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 H/o extensive tobacco use. Continue duonebs GUARDED PROGNOSIS Code Status DNR Continue on DVT prophylaxis with Lovenox 30 mg subcutaneous daily Continue on Pepcid for GI prophylaxis DC plan palliative care following for goals of care and DC plan Yarelis Dodge MD Jan 09, 2017 09:50
[2017-01-09] MEDS ORDERED: VANCOMYCIN INJ 1,250 MG in SODIUM CHLOR 0.9% 250 ML INJ 250 ML IV ONE (13:00)
--- NOTE | 2017-01-09 13:58 | HHI.IDPN ---
Note Infectious Disease Note Patient is somnolent. Afebrile. No distress. Blood culture has proteus. PAST MEDICAL HISTORY 1. Hypertension 2. Diabetes mellitus 3. Cerebrovascular accident 4. Dysphasia 5. Chronic obstructive pulmonary disease. 6. Gastroesophageal reflux disease. 7. Neurogenic bladder 8. History of percutaneous endoscopic gastrostomy tube 9. Urinary tract infections 10. Chronic indwelling Mcginnis catheter. ALLERGIES NO KNOWN DRUG ALLERGIES. MEDICATIONS: 1. Piperacillin / tazobactam 2. Vancomycin. SOCIAL HISTORY Patient is a longterm resident. No tobacco, no alcohol. No illicit drugs. FAMILY HISTORY Noncontributory. REVIEW OF SYSTEMS Review of systems unable to obtain. OBJECTIVE: Vital Signs Date Time Temp Pulse Resp B/P (MAP) Pulse Ox O2 Delivery O2 Flow Rate FiO2 01/09/17 12:00 98.8 75 20 118/66 (83) 96 01/09/17 08:00 99.9 83 20 126/67 (86) 95 01/09/17 04:26 99.9 78 21 133/63 (86) 98 01/09/17 00:22 99.8 65 17 119/56 (77) 94 01/08/17 20:30 96.6 82 21 124/56 (78) 98 01/08/17 20:00 83 01/08/17 18:35 21 01/08/17 16:00 99.0 90 17 125/63 (83) 96 Laboratory Tests Test 01/09/17 07:24 White Blood Count 8.2 TH/MM3 Red Blood Count 3.02 MIL/MM3 Hemoglobin 9.0 GM/DL Hematocrit 26.7 % Mean Corpuscular Volume 88.4 FL Mean Corpuscular Hemoglobin 29.8 PG Mean Corpuscular Hemoglobin Concent 33.7 % Red Cell Distribution Width 14.7 % Platelet Count 89 TH/MM3 Mean Platelet Volume 10.3 FL Neutrophils (%) (Auto) 87.1 % Lymphocytes (%) (Auto) 6.0 % Monocytes (%) (Auto) 4.3 % Eosinophils (%) (Auto) 2.3 % Basophils (%) (Auto) 0.3 % Neutrophils # (Auto) 7.2 TH/MM3 Lymphocytes # (Auto) 0.5 TH/MM3 Monocytes # (Auto) 0.4 TH/MM3 Eosinophils # (Auto) 0.2 TH/MM3 Basophils # (Auto) 0.0 TH/MM3 CBC Comment AUTO DIFF Differential Comment AUTO DIFF CONFIRMED Platelet Estimate LOW Platelet Morphology Comment NORMAL Blood Urea Nitrogen 24 MG/DL Creatinine 1.13 MG/DL Random Glucose 259 MG/DL Calcium Level 8.1 MG/DL Magnesium Level 2.0 MG/DL Sodium Level 146 MEQ/L Potassium Level 2.9 MEQ/L Chloride Level 115 MEQ/L Carbon Dioxide Level 23.6 MEQ/L Anion Gap 7 MEQ/L Estimat Glomerular Filtration Rate 64 ML/MIN Ammonia 34 MCMOL/L Random Vancomycin Level 3.9 COMMENT PHYSICAL EXAMINATION: GENERAL: No acute distress. Somnolent and not arousing. HEAD, EYES, EARS, NOSE, AND THROAT: Head is atraumatic. Extraocular movements cannot be fully assessed, since the patient cannot cooperate. No icterus. Oropharynx dry mucosa. No thrush. NECK: No adenopathy. LUNGS: Decreased breath sounds throughout. Respiratory pauses. HEART: Distant S1-S2 without audible murmurs. ABDOMEN: Bowel sounds present, soft, nontender. EXTREMITIES: No clubbing, cyanosis or edema. The right lower extremity is contracted. SKIN: No rash. NEUROLOGIC: Unable to assess. PSYCHIATRIC: Psych unable to assess. CT scan of the abdomen and pelvis showed no abnormalities of the abdomen. There was mild atelectasis versus consolidation at the lung bases. IMPRESSION 1. Gram-negative sepsis. proteus. 2. Urinary tract infection. 3. Decreased mental status secondary to infection. 4. Leukocytosis improved. RECOMMENDATIONS 1. Stop piperacillin / tazobactam and vancomycin. 2. Start Ceftriaxone. 3. Follow the repeat blood culture. 4. Monitor the clinical response. 5. If repeat blood culture is negative he can be treated with 10 days of ceftriaxone. Matt Zheng MD Jan 09, 2017 13:58
[2017-01-09] MEDS: cefTRIAXone INJ 2,000 MG in SODIUM CHLORIDE 0.9% INJ 100 ML IV SCH (14:20)
[2017-01-10] VITALS: BP 131/66; PULSE 69; RESP 20; TEMP 99.3; O2SAT 94
[2017-01-10] MEDS: SODIUM CHLOR 0.45% 1000 ML INJ 1,000 ML IV SCH ×3 (00:38→23:52)
[2017-01-10 04:00] VITALS: BP 126/62; PULSE 75; RESP 20; TEMP 98.8; O2SAT 94
[2017-01-10] MEDS: FREE WATER G-TUBE SCH ×3 (05:01→22:00)
--- NOTE | 2017-01-10 07:30 | HHI.PR ---
Subjective Remarks Patient is in bed, appears in nad. Per nurse is noted grimacing at times. Nonverbal at baseline. VSS. Afebrile. Objective Vitals Vital Signs Date Time Temp Pulse Resp B/P (MAP) Pulse Ox O2 Delivery O2 Flow Rate FiO2 01/10/17 04:00 98.8 75 20 126/62 (83) 94 01/10/17 00:00 99.3 69 20 131/66 (87) 94 01/09/17 21:00 71 01/09/17 20:00 98.4 76 18 122/61 (81) 96 01/09/17 16:00 97.7 77 19 118/57 (77) 96 01/09/17 12:00 98.8 75 20 118/66 (83) 96 01/09/17 08:00 99.9 83 20 126/67 (86) 95 I/O 01/09/17 01/09/17 01/09/17 01/10/17 01/10/17 01/10/17 06:59 14:59 22:59 06:59 14:59 22:59 Intake Total 338 ml 100 ml 1280 ml 575 ml Output Total 1200 ml 850 ml 650 ml Balance -862 ml 100 ml 430 ml -75 ml Intake Oral 0 ml 0 ml IV Total 100 ml 350 ml Tube Feeding 338 ml 730 ml 375 ml Tube Irrigant 200 ml 200 ml Output Urine Total 1200 ml 850 ml 650 ml # Bowel Movements 1 2 2 Result Diagram: 01/09/1724 01/09/17 0724 Imaging Last Impressions Head CT 01/07/17534 Signed Impressions: Service Date/Time: Saturday, January 07, 2017 06:02 - CONCLUSION: 1. No acute findings. Atrophic brain. Charles Christensen MD Chest X-Ray 01/07/1735 Signed Impressions: Service Date/Time: Saturday, January 07, 2017 05:46 - CONCLUSION: No acute disease. Charles Christensen MD Abdomen/Pelvis CT 01/07/17 0000 Signed Impressions: Service Date/Time: Saturday, January 07, 2017 06:52 - CONCLUSION: 1. No abnormality is identified on this noncontrast examination to explain the patient's hematuria. No renal stones are seen. There is fullness of the collecting systems bilaterally. 2. Mild atelectasis versus consolidation at the lung bases. Nahum Blue MD Objective Remarks GENERAL: This is a well-nourished, well-developed patient, in no apparent distress.NONVERBAL- FOLLOWS NO COMMANDS AT THIS TIME CARDIOVASCULAR: Regular rate and rhythm without murmurs, gallops, or rubs. S1, S2 NO S3 OR S4 RESPIRATORY: Coarse breath sounds bilaterally. Breath sounds equal bilaterally. No wheezes, rhonchi's bilaterally coarse GASTROINTESTINAL: Abdomen soft, non-tender, nondistended. No hepato-splenomegaly , or palpable masses. No guarding. PEG tube Mcginnis catheter in place MUSCULOSKELETAL: Extremities without clubbing, cyanosis, or edema. No joint tenderness, effusion, or edema noted. No calf tenderness. Negative Homans sign bilaterally. Has bilateral contractURES NEUROLOGICAL: Not awake and sleepy, nonverbal. Some contractures. Not able to assess insight and judgment/ behavior, motor, CN A/P Problem List: (1) Diabetes ICD Code: E11.9 - Type 2 diabetes mellitus without complications (2) CVA (cerebral vascular accident) ICD Code: I63.9 - Cerebral infarction, unspecified (3) Aphasia ICD Code: R47.01 - Aphasia (4) Hypertension ICD Code: I10 - Essential (primary) hypertension (5) COPD (chronic obstructive pulmonary disease) ICD Code: J44.9 - Chronic obstructive pulmonary disease, unspecified (6) Sepsis secondary to UTI ICD Code: A41.9 - Sepsis, unspecified organism; N39.0 - Urinary tract infection , site not specified Status: Acute Assessment and Plan Encephalopathy multiple etiology patient with sepsis, previous CVA, high ammonia Elevated ammonia level. started lactulose titrate to 2-3 BM daily. Monitor ammonia levels Sepsis 2/2 indwelling catheter related UTI, bacteremia with Proteus CT abd/pelvis reviewed: 1. No abnormality is identified on this noncontrast examination to explain the patient's hematuria. No renal stones are seen. There is fullness of the collecting systems bilaterally. 2. Mild atelectasis versus consolidation at the lung bases. CXR reviewed: No evidence of mass, infiltrate or effusion. CT brain reviewed: Marked central and cortical atrophy with dilatation of ventricular and sulcal spaces. There is no parenchymal hemorrhage, acute infarction or mass lesion identified. There are no extra-axial fluid collections appreciated. The posterior fossa is unremarkable with midline fourth ventricle. The portion of the orbits and paranasal sinuses visualized are unremarkable. Seen by ID specialist appreciate recommendations Stop zosyn, vanco start cefriaxone x 10 days if repeat blood cx negative Blood cultures 4/4 bottles with Proteus. Repeat blood cx NTD. Consult ID for eval, appreciate recommendations. Need total of 10 days of ceftriaxone if repeat blood cx negative Monitor VS DM insulin dependent On lantus at home. Will hold lantus at this time as patient was noted hypoglycemic, start tube feeding per diatician recommendations. Accu checks, ISS Dysphagia: on tube feedings, ST ff Hypokalemia Will replace via PEG. Monitor and replace as need. Hypertension: cont home meds as appropriate. 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 H/o extensive tobacco use. Continue duonebs GUARDED PROGNOSIS Code Status DNR Continue on DVT prophylaxis with Lovenox 30 mg subcutaneous daily Continue on Pepcid for GI prophylaxis DC plan palliative care following for goals of care and DC plan.Patient with bacteremia, Proteus on ceftiaxone x 10 days if repeat blood cx neg. F/u blood cx. Yarelis Dodge MD Jan 10, 2017 07:30
[2017-01-10 08:00] VITALS: BP 130/62; PULSE 75; RESP 16; TEMP 98.6; O2SAT 90
[2017-01-10 08:02] LABS: BICARBONATE 24.9 MEQ/L (21.0-32.0)
[2017-01-10] MEDS: SODIUM CHLORIDE 0.9% FLUSH 10 ML FLUSH IV FLUSH SCH ×2 (09:00→22:06)
[2017-01-10] MEDS: INSULIN ASPART SUPPLEMENTAL SCALE SQ SCH ×4 (09:27→23:50)
[2017-01-10] MEDS: ENOXAPARIN SODIUM 30 MG/0.3 ML SYRINGE SQ SCH (09:30)
[2017-01-10] MEDS: LACTULOSE SYRUP 20 GM/30 ML CUP PEG SCH ×4 (09:31→22:05)
[2017-01-10] MEDS: MULTIVITAMINS/MINERALS THERAPEUTIC TAB PEG SCH (09:31)
[2017-01-10] MEDS: FERROUS SULFATE 300 MG /5ML UDC PEG SCH ×2 (09:31→22:05)
[2017-01-10] MEDS: METOPROLOL TARTRATE 50 MG TAB PEG SCH ×2 (09:31→22:06)
[2017-01-10] MEDS: DOCUSATE SODIUM 50 MG/SENNA 8.6 MG TAB PO SCH ×2 (09:31→22:06)
[2017-01-10 12:00] VITALS: BP 123/65; PULSE 66; RESP 16; TEMP 98.2; O2SAT 90
[2017-01-10] MEDS: CALCIUM CARBONATE 1.25 GM (CA 500 MG) TAB PEG SCH ×3 (12:56→18:18)
[2017-01-10] MEDS: cefTRIAXone INJ 2,000 MG in SODIUM CHLORIDE 0.9% INJ 100 ML IV SCH (14:00)
[2017-01-10 16:00] VITALS: BP 132/61; PULSE 64; RESP 16; TEMP 98.3; O2SAT 97
[2017-01-10] MEDS ORDERED: POTASSIUM BICARBONATE 25 MEQ EFFERVESCENT TAB PO ONE (16:45)
--- NOTE | 2017-01-10 16:49 | HHI.HCPN ---
Reason for visit a. To assist with evaluation and management of symptoms including: confusion , dysphagia, Debility b. To assist medical decision maker(s) with: better understanding of current medical conditions; weighing benefits/burdens of medical treatment options; making medical treatment decisions. (Benson Mcfadden) Subjective/Interval History Mr. Young is a 71 years old male with a past medical history of dementia, COPD , GERD, DM Type 11, hypertension,aphasia, dysphagia, dementia and neurogenic bladder. Patient is a resident at the [facility]. Patient presented to the ED on 01/07/17 after he vomited and [facility] jail which is not his norm. Per jail staff report, patient usually is nonverbal but makes incomprehensible sounds. Blood culture collected on 01/07/17 growing Proteus mirabilis.01/08/17- ID Dr. Zheng consulted for management of bacteremia. Patient seen in his room, sleeping and easily arousable. No signs of distress or discomfort noted. Patient is nonverbal and does not follow commands. Patient is afebrile. SBP 120s -130s. Patient is on room air and O2 saturation low 90s. Laboratory workup today revealing sodium 147, potassium 3.0, BUN/creatinine 15/0.91, random glucose 243, ammonia 33. Per case management note by Trish Espinosa patient will most likely discharge back to [facility] with hospice. Patient`s sound asleep in room. . (Benson Mcfadden) Advance Directives Living Will: Copy in medical record (Patient completed FIVE WISHES-designating his Yoana Young to be his Health Care Agent and his daughter Klarissa Guzman as an alternate Health Care Agent) Health Care Surrogate: Copy in medical record Durable Power of [place] Knitter: Copy in medical record (Benson Mcfadden) Advance Directive Specifics Date completed: Signed Five Wishes - February 07, 2016 DPOA-daughter- June 04, 2016 . Health Care Surrogate(s): Health Care Agent- Yoana Young. Alternate Health Care Agent- Daughter - Nara Guzman. Patient`s has opted out so June Thomas will serve as patient`s Health Care Agent. . Documented care wishes: According to signed FIVE WISHES- Patient does not want life support treatment if he is close to , or in a coma and not expected to wake up or recover, or if he has permanent and severe her brain damage and not expected to recover. If life support has been started, he wants it to be stopped. . Significant change in goals: Patient will discharge back to [facility] with hospice. . (Benson Mcfadden) Objective Vital Signs Date Time Temp Pulse Resp B/P (MAP) Pulse Ox O2 Delivery O2 Flow Rate FiO2 01/10/17 12:00 98.2 66 16 123/65 (84) 90 01/10/17 08:00 98.6 75 16 130/62 (84) 90 01/10/17 04:00 98.8 75 20 126/62 (83) 94 01/10/17 00:00 99.3 69 20 131/66 (87) 94 01/09/17 21:00 71 01/09/17 20:00 98.4 76 18 122/61 (81) 96 Intake & Output 01/10/17 01/10/17 07:00 19:00 Intake Total 1505 ml Output Total 650 ml Balance 855 ml Intake Oral 0 ml Tube Feeding 1105 ml Tube Irrigant 400 ml Output Urine Total 650 ml # Bowel Movements 2 Physical Exam CONSTITUTIONAL/GENERAL: This is a frail, elderly patient, sleeping in no apparent distress. TUBES/LINES/DRAINS: PIV, FC,PEG tube SKIN: No jaundice, rashes, or lesions. Ecchymoses on upper extremities. No wounds seen anteriorly. Skin temperature appropriate. Not diaphoretic. HEAD: Atraumatic. Normocephalic. EYES: Pupils equal and round and reactive. No scleral icterus. No injection or drainage. Fundi not examined. ENT: Nose without bleeding or purulent drainage. Moist oral mucosa. NECK: Trachea midline. Supple, nontender. CARDIOVASCULAR: Regular rate and rhythm without murmurs, gallops, or rubs. No JVD. Peripheral pulses symmetric. RESPIRATORY/CHEST: Symmetric, unlabored respirations. Breath sounds equal bilaterally. Lungs rhonchi to auscultation. No wheezes, rales. GASTROINTESTINAL: Abdomen soft, non-tender, nondistended.No guarding. Bowel sounds present. TF infusing at 55ml/hr via PEG tube. Patient incontinent of stool. GENITOURINARY: Without palpable bladder distension. Mcginnis catheter in place. MUSCULOSKELETAL: Extremities without clubbing, cyanosis, or edema.Right leg contracture noted. NEUROLOGICAL: Sleeping with minimal response to tactile stimuli.Patient not following commands. Aphasic. PSYCHIATRIC: No obvious anxiety/depression. no apparent hallucinations or other psychotic thought process. . (Benson Mcfadden) Diagnostic Tests Laboratory Laboratory Tests Test 01/07/17 18:48 01/08/17 02:13 01/08/17 06:35 01/08/17 08:25 Lactic Acid Level 1.8 mmol/L (0.4-2.0) Total Creatine Kinase 49 U/L (39-308) 46 U/L (39-308) Troponin I 0.49 NG/ML (0.02-0.05) 0.41 NG/ML (0.02-0.05) Blood Urea Nitrogen 45 MG/DL (7-18) Creatinine 1.36 MG/DL (0.60-1.30) Random Glucose 59 MG/DL (74-106) Total Protein 5.7 GM/DL (6.4-8.2) Albumin 2.0 GM/DL (3.4-5.0) Calcium Level 8.1 MG/DL (8.5-10.1) Phosphorus Level 2.2 MG/DL (2.5-4.9) Magnesium Level 2.2 MG/DL (1.5-2.5) Alkaline Phosphatase 178 U/L (45-117) Aspartate Amino Transf (AST/SGOT) 18 U/L (15-37) Alanine Aminotransferase (ALT/SGPT) 57 U/L (12-78) Total Bilirubin 0.5 MG/DL (0.2-1.0) Sodium Level 146 MEQ/L (136-145) Potassium Level 3.6 MEQ/L (3.5-5.1) Chloride Level 114 MEQ/L (98-107) Carbon Dioxide Level 23.5 MEQ/L (21.0-32.0) Anion Gap 9 MEQ/L (5-15) Estimat Glomerular Filtration Rate 52 ML/MIN (>89) Hemoglobin A1c 4.9 % (4.3-6.0) Free Thyroxine 1.36 NG/DL (0.76-1.46) Thyroid Stimulating Hormone 3rd Gen 1.300 uIU/ML (0.358-3.740) Ammonia 44 MCMOL/L (11-32) White Blood Count 9.5 TH/MM3 (4.0-11.0) Red Blood Count 3.02 MIL/MM3 (4.50-5.90) Hemoglobin 9.0 GM/DL (13.0-17.0) Hematocrit 26.9 % (39.0-51.0) Mean Corpuscular Volume 89.0 FL (80.0-100.0) Mean Corpuscular Hemoglobin 29.7 PG (27.0-34.0) Mean Corpuscular Hemoglobin Concent 33.4 % (32.0-36.0) Red Cell Distribution Width 14.5 % (11.6-17.2) Platelet Count 98 TH/MM3 (150-450) Mean Platelet Volume 10.4 FL (7.0-11.0) Neutrophils (%) (Auto) 86.1 % (16.0-70.0) Lymphocytes (%) (Auto) 8.1 % (9.0-44.0) Monocytes (%) (Auto) 4.6 % (0.0-8.0) Eosinophils (%) (Auto) 0.9 % (0.0-4.0) Basophils (%) (Auto) 0.3 % (0.0-2.0) Neutrophils # (Auto) 8.2 TH/MM3 (1.8-7.7) Lymphocytes # (Auto) 0.8 TH/MM3 (1.0-4.8) Monocytes # (Auto) 0.4 TH/MM3 (0-0.9) Eosinophils # (Auto) 0.1 TH/MM3 (0-0.4) Basophils # (Auto) 0.0 TH/MM3 (0-0.2) CBC Comment AUTO DIFF Differential Total Cells Counted 100 Neutrophils % (Manual) 64 % (16-70) Band Neutrophils % 26 % (0-6) Lymphocytes % 6 % (9-44) Monocytes % 2 % (0-8) Neutrophils # (Manual) 8.7 TH/MM3 (1.8-7.7) Metamyelocytes 2 % (0-1) Differential Comment FINAL DIFF MANUAL Toxic Granulation 1+ (NORMAL) Platelet Estimate LOW (NORMAL) Platelet Morphology Comment NORMAL (NORMAL) Test 01/09/17 07:24 10/16/17 04:55 White Blood Count 8.2 TH/MM3 (4.0-11.0) Red Blood Count 3.02 MIL/MM3 (4.50-5.90) Hemoglobin 9.0 GM/DL (13.0-17.0) Hematocrit 26.7 % (39.0-51.0) Mean Corpuscular Volume 88.4 FL (80.0-100.0) Mean Corpuscular Hemoglobin 29.8 PG (27.0-34.0) Mean Corpuscular Hemoglobin Concent 33.7 % (32.0-36.0) Red Cell Distribution Width 14.7 % (11.6-17.2) Platelet Count 89 TH/MM3 (150-450) Mean Platelet Volume 10.3 FL (7.0-11.0) Neutrophils (%) (Auto) 87.1 % (16.0-70.0) Lymphocytes (%) (Auto) 6.0 % (9.0-44.0) Monocytes (%) (Auto) 4.3 % (0.0-8.0) Eosinophils (%) (Auto) 2.3 % (0.0-4.0) Basophils (%) (Auto) 0.3 % (0.0-2.0) Neutrophils # (Auto) 7.2 TH/MM3 (1.8-7.7) Lymphocytes # (Auto) 0.5 TH/MM3 (1.0-4.8) Monocytes # (Auto) 0.4 TH/MM3 (0-0.9) Eosinophils # (Auto) 0.2 TH/MM3 (0-0.4) Basophils # (Auto) 0.0 TH/MM3 (0-0.2) CBC Comment AUTO DIFF Differential Comment AUTO DIFF CONFIRMED Platelet Estimate LOW (NORMAL) Platelet Morphology Comment NORMAL (NORMAL) Blood Urea Nitrogen 24 MG/DL (7-18) 15 MG/DL (7-18) Creatinine 1.13 MG/DL (0.60-1.30) 0.91 MG/DL (0.60-1.30) Random Glucose 259 MG/DL (74-106) 243 MG/DL (74-106) Calcium Level 8.1 MG/DL (8.5-10.1) 8.2 MG/DL (8.5-10.1) Magnesium Level 2.0 MG/DL (1.5-2.5) Sodium Level 146 MEQ/L (136-145) 147 MEQ/L (136-145) Potassium Level 2.9 MEQ/L (3.5-5.1) 3.0 MEQ/L (3.5-5.1) Chloride Level 115 MEQ/L (98-107) 115 MEQ/L (98-107) Carbon Dioxide Level 23.6 MEQ/L (21.0-32.0) 24.9 MEQ/L (21.0-32.0) Anion Gap 7 MEQ/L (5-15) 7 MEQ/L (5-15) Estimat Glomerular Filtration Rate 64 ML/MIN (>89) 82 ML/MIN (>89) Ammonia 34 MCMOL/L (11-32) 33 MCMOL/L (11-32) Random Vancomycin Level 3.9 COMMENT 9.8 COMMENT (Benson Mcfadden) Result Diagram: 01/09/17 0724 01/10/17 0455 Microbiology Microbiology Date/Time Source Procedure Growth Status 01/08/17 10:05 Blood Peripheral Aerobic Blood Culture - Preliminary NO GROWTH IN 2 DAYS Resulted 01/08/17 10:05 Blood Peripheral Anaerobic Blood Culture - Preliminary NO GROWTH IN 2 DAYS Resulted 01/08/17 09:50 Blood Peripheral Aerobic Blood Culture - Preliminary NO GROWTH IN 2 DAYS Resulted 01/08/17 09:50 Blood Peripheral Anaerobic Blood Culture - Preliminary NO GROWTH IN 2 DAYS Resulted Imaging Last Impressions Head CT 01/07/17534 Signed Impressions: Service Date/Time: Saturday, January 07, 2017 06:02 - CONCLUSION: 1. No acute findings. Atrophic brain. Charles Christensen MD Chest X-Ray 01/07/1735 Signed Impressions: Service Date/Time: Saturday, January 07, 2017 05:46 - CONCLUSION: No acute disease. Charles Christensen MD Abdomen/Pelvis CT 01/07/17 0000 Signed Impressions: Service Date/Time: Saturday, January 07, 2017 06:52 - CONCLUSION: 1. No abnormality is identified on this noncontrast examination to explain the patient's hematuria. No renal stones are seen. There is fullness of the collecting systems bilaterally. 2. Mild atelectasis versus consolidation at the lung bases. Nahum Blue MD (Benson Mcfadden) Assessment and Plan Disease Oriented Problem List: (1) Sepsis secondary to UTI (2) COPD (chronic obstructive pulmonary disease) (3) Aphasia (4) Diabetes Symptom Scale: (1) Confusion 0-10 Scale: Unable to quantify Comment: Change in baseline mentation. . (2) Dysphagia 0-10 Scale: Unable to quantify Comment: Patient has a PEG tube, recently vomited at jail after he was fed apple sauce. . (3) Debility Pertinent Non-Medical Issues Psychosocial:Patient was born and raised in [place]. Patient is once to his Yoana Young for 47 years. Patient had two children,1 adult daughter and a son who at age 4. 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 Patient and his moved to [place] approximately 41/2 years ago. Spiritual:No sabianism affiliation Legal:Patient has signed FIVE WISHES Ethical issues impacting care: None identified at this time . Important Contacts Spouse- Yoana Young , Daughter- Nara Guzman Call daughter first . Prognosis Mr. Young is a 71 years old male with a past medical history of COPD, CVA, aphasia, dysphagia and a neurogenic bladder. [facility] Patient presented to the ED on 01/07/17 after he vomited and became nonverbal later on at the jail which is not his norm. Patient is aphasic , has a peg tube and a chronic indwelling Mcginnis catheter. Patient health has continued to decline since his hospitalization in February of 2016. Patient currently being treated for sepsis secondary to UTI. Given ongoing multiple comorbidities, patient is at risk for further complications, deterioration and decline. Prognosis is guarded. . Code Status: No Code Plan PLAN: Legal decision maker: Patient is not able to participate in his medical decision making. Patient designated his Yoana Young as his Health Care Agent and his daughter Nara Guzman as his alternate Health Care Agent. Patient` s has opted out and Nara Guzman will make medical decisions for patient. Even though patient`s opted out, she still is involved with patient`s care and is agreeable with decisions made by her daughter. Goals: 01/10/2017 Aggressive short of No Code. Family would like patient to continue current antibiotic course and return to [place] with hospice. CODE STATUS: DNR SYMPTOMS: * Confusion- Multifactorial. Patient has a history of dementia. Baseline is aphasic, only mumbles incomprehensible words.Recent deviation from his norm. Possibly due to recurrent UTI. Patient on Zosyn and was given x1 dose Vancomycin. * Dysphagia-Patient has a PEG tube. Report of vomiting at jail. Possible aspiration. Patient is minimally responsive and has a high risk of aspiration. TF started- infusing at 55ml/hr. Recommending speech therapy evaluation if there is need for pleasure foods. * Debility - Progressing. History of prolonged hospitalization and recurrent UTI. Patient is bedbound, totally dependent on all his ADLs. Patient has right leg contracture. PT consulted. Patient is at risk for continued decline and debility. Palliative care will continue to follow the patient during hospital course as condition evolves, to assist patient/decision-maker with understanding of their medical conditions, weighing benefits/burdens of treatment options, for clarification of goals of treatment. Additionally will assist with any symptoms of palliative concern (Benson Mcfadden) Plan Plan Above assessment and plan reviewed, patient evaluated in dual visit with ALANIS Espinoza. Agree with above assessment and plan. (Kiya Perez) Attestation To help prompt me to consider important information that might be impacting todays encounter, some historical information from prior notes written by myself or my colleagues may have been brought forward into todays note. My signature on this note, however, is an attestation that I personally performed the exam noted today, and, unless otherwise dated, the interactions with patient , family, and staff as well as the review of records noted all occurred today. I also attest that the listed assessment and stated plan reflect my best clinical judgment today based on the combination of historical information, prior notes, and todays exam/ interactions. The level of evaluation / management services and/or time that is claimed for this visit does NOT include work or time done by myself or other providers on previous visits. . (Benson Mcfadden) Benson Mcfadden Jan 10, 2017 16:49 Kiya Perez Jan 10, 2017 17:26
[2017-01-10 20:00] VITALS: BP 125/64; PULSE 69; RESP 20; TEMP 99.1; O2SAT 90
[2017-01-10] MEDS: FAMOTIDINE 20 MG/2 ML VIAL IV PUSH SCH (22:05)
[2017-01-11] VITALS: BP 142/85; PULSE 66; RESP 21; TEMP 99.5; O2SAT 93
[2017-01-11] MEDS: FREE WATER G-TUBE SCH ×2 (06:00→14:00)
[2017-01-11 06:32] LABS: AUTOMATED NEUTROPHIL # 4.2 TH/MM3 (1.8-7.7); BASOPHIL % 0.3 % (0.0-2.0); EOSINOPHIL # 0.3 TH/MM3 (0-0.4); HEMATOCRIT 25.2 % (39.0-51.0); LYMPH % 11.9 % (9.0-44.0); LYMPHOCYTE # 0.7 TH/MM3 (1.0-4.8); MEAN CELL VOLUME 87.1 FL (80.0-100.0); MEAN CORPUSCULAR HEMOGLOBIN 29.5 PG (27.0-34.0); MEAN CORPUSCULAR HGB CONC 33.9 % (32.0-36.0); MONO % 5.5 % (0.0-8.0); NEUT % 76.3 % (16.0-70.0); PLATELET COUNT 88 TH/MM3 (150-450); RED CELL DISTRIBUTION WIDTH 14.1 % (11.6-17.2); WHITE BLOOD COUNT 5.5 TH/MM3 (4.0-11.0)
[2017-01-11 06:44] LABS: HEMO FLAGS AUTO DIFF
[2017-01-11 07:12] LABS: BICARBONATE 24.8 MEQ/L (21.0-32.0); MAGNESIUM 1.6 MG/DL (1.5-2.5)
[2017-01-11 07:18] LABS: POTASSIUM 2.7 MEQ/L (3.5-5.1)
[2017-01-11 08:00] VITALS: BP 138/67; PULSE 50; RESP 16; TEMP 97.9; O2SAT 100
--- NOTE | 2017-01-11 08:33 | HHI.PR ---
Subjective Remarks In bed appears in nad. More awake and alert. Doesn't appear in acute distress. VSS. Objective Vitals Vital Signs Date Time Temp Pulse Resp B/P (MAP) Pulse Ox O2 Delivery O2 Flow Rate FiO2 01/11/17 08:00 97.9 50 16 138/67 (90) 100 01/11/17 00:00 99.5 66 21 142/85 (104) 93 01/10/17 20:00 99.1 69 20 125/64 (84) 90 01/10/17 16:00 98.3 64 16 132/61 (84) 97 01/10/17 12:00 98.2 66 16 123/65 (84) 90 I/O 01/10/17 01/10/17 01/10/17 01/11/17 01/11/17 01/11/17 07:00 15:00 23:00 07:00 15:00 23:00 Intake Total 575 ml 2060 ml 2250 ml Output Total 650 ml 901 ml 800 ml Balance -75 ml 1159 ml 1450 ml Intake Oral 0 ml 0 ml IV Total 1200 ml 1200 ml Tube Feeding 375 ml 660 ml 650 ml Tube Irrigant 200 ml 200 ml 400 ml Output Urine Total 650 ml 900 ml 800 ml Stool Total 1 ml # Bowel Movements 2 3 2 Result Diagram: 01/11/1761401/11/17614 Imaging Last Impressions Head CT 01/07/17534 Signed Impressions: Service Date/Time: Saturday, January 07, 2017 06:02 - CONCLUSION: 1. No acute findings. Atrophic brain. Charles Christensen MD Chest X-Ray 01/07/17534 Signed Impressions: Service Date/Time: Saturday, January 07, 2017 05:46 - CONCLUSION: No acute disease. Charles Christensen MD Abdomen/Pelvis CT 01/07/17 0000 Signed Impressions: Service Date/Time: Saturday, January 07, 2017 06:52 - CONCLUSION: 1. No abnormality is identified on this noncontrast examination to explain the patient's hematuria. No renal stones are seen. There is fullness of the collecting systems bilaterally. 2. Mild atelectasis versus consolidation at the lung bases. Nahum Blue MD Objective Remarks GENERAL: This is a well-nourished, well-developed patient, in no apparent distress.NONVERBAL- FOLLOWS NO COMMANDS AT THIS TIME CARDIOVASCULAR: Regular rate and rhythm without murmurs, gallops, or rubs. S1, S2 NO S3 OR S4 RESPIRATORY: Coarse breath sounds bilaterally. Breath sounds equal bilaterally. No wheezes, rhonchi's bilaterally coarse GASTROINTESTINAL: Abdomen soft, non-tender, nondistended. No hepato-splenomegaly , or palpable masses. No guarding. PEG tube Mcginnis catheter in place MUSCULOSKELETAL: Extremities without clubbing, cyanosis, or edema. No joint tenderness, effusion, or edema noted. No calf tenderness. Negative Homans sign bilaterally. Has bilateral contractURES NEUROLOGICAL: Not awake and sleepy, nonverbal. Some contractures. Not able to assess insight and judgment/ behavior, motor, CN A/P Problem List: (1) Diabetes ICD Code: E11.9 - Type 2 diabetes mellitus without complications (2) CVA (cerebral vascular accident) ICD Code: I63.9 - Cerebral infarction, unspecified (3) Aphasia ICD Code: R47.01 - Aphasia (4) Hypertension ICD Code: I10 - Essential (primary) hypertension (5) COPD (chronic obstructive pulmonary disease) ICD Code: J44.9 - Chronic obstructive pulmonary disease, unspecified (6) Sepsis secondary to UTI ICD Code: A41.9 - Sepsis, unspecified organism; N39.0 - Urinary tract infection , site not specified Status: Acute Assessment and Plan Encephalopathy multiple etiology patient with sepsis, previous CVA, high ammonia Elevated ammonia level. started lactulose titrate to 2-3 BM daily. Monitor ammonia levels Sepsis 2/2 indwelling catheter related UTI, bacteremia with Proteus CT abd/pelvis reviewed: 1. No abnormality is identified on this noncontrast examination to explain the patient's hematuria. No renal stones are seen. There is fullness of the collecting systems bilaterally. 2. Mild atelectasis versus consolidation at the lung bases. CXR reviewed: No evidence of mass, infiltrate or effusion. CT brain reviewed: Marked central and cortical atrophy with dilatation of ventricular and sulcal spaces. There is no parenchymal hemorrhage, acute infarction or mass lesion identified. There are no extra-axial fluid collections appreciated. The posterior fossa is unremarkable with midline fourth ventricle. The portion of the orbits and paranasal sinuses visualized are unremarkable. Seen by ID specialist appreciate recommendations Stop zosyn, vanco start cefriaxone x 10 days if repeat blood cx negative Blood cultures 4/4 bottles with Proteus. Repeat blood cx NTD. Consult ID for eval, appreciate recommendations. Need total of 10 days of ceftriaxone if repeat blood cx negative Monitor VS DM insulin dependent On lantus at home. Will hold lantus at this time as patient was noted hypoglycemic, start tube feeding per diatician recommendations. Accu checks, ISS Dysphagia: on tube feedings, ST ff Hypokalemia Will replace via PEG. Monitor and replace as need. Hypertension: cont home meds as appropriate. 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 H/o extensive tobacco use. Continue duonebs GUARDED PROGNOSIS Code Status DNR Continue on DVT prophylaxis with Lovenox 30 mg subcutaneous daily Continue on Pepcid for GI prophylaxis DC plan palliative care following for goals of care and DC plan. Plan to DC to SNF and thereafter hospice per family. Patient to have antibiotic treatment. Patient with bacteremia, Proteus on ceftiaxone x 10 days if repeat blood cx neg. F/u blood cx. Discussed with Dr Grissom ID specialist. OK to place PICC line and DC patient to SNF. Also infusion done Yarelis Dodge MD Jan 11, 2017 08:33
[2017-01-11 08:43] LABS: DOHLE BODIES PRESENT (NONE SEEN)
[2017-01-11 08:44] LABS: PLATELET ESTIMATE SMEAR LOW (NORMAL); PLATELET MORPHOLOGY NORMAL (NORMAL); SCAN/DIFF AUTO DIFF CONFIRMED
[2017-01-11] MEDS: SODIUM CHLORIDE 0.9% FLUSH 10 ML FLUSH IV FLUSH SCH (09:00)
[2017-01-11] MEDS: LACTULOSE SYRUP 20 GM/30 ML CUP PEG SCH ×2 (09:46→12:50)
[2017-01-11] MEDS: FERROUS SULFATE 300 MG /5ML UDC PEG SCH (09:46)
[2017-01-11] MEDS: METOPROLOL TARTRATE 50 MG TAB PEG SCH (09:46)
[2017-01-11] MEDS: DOCUSATE SODIUM 50 MG/SENNA 8.6 MG TAB PO SCH (09:46)
[2017-01-11] MEDS: CALCIUM CARBONATE 1.25 GM (CA 500 MG) TAB PEG SCH ×2 (09:46→12:48)
[2017-01-11] MEDS: MULTIVITAMINS/MINERALS THERAPEUTIC TAB PEG SCH (09:46)
[2017-01-11] MEDS: FAMOTIDINE 20 MG/2 ML VIAL IV PUSH SCH (09:48)
[2017-01-11] MEDS: INSULIN ASPART SUPPLEMENTAL SCALE SQ SCH ×2 (09:52→12:50)
[2017-01-11] MEDS: SODIUM CHLOR 0.45% 1000 ML INJ 1,000 ML IV SCH (09:57)
[2017-01-11] MEDS ORDERED: POTASSIUM BICARBONATE 25 MEQ EFFERVESCENT TAB PO ONE (10:00)
[2017-01-11 12:00] VITALS: BP 146/68; PULSE 57; RESP 16; TEMP 98.5; O2SAT 98
--- NOTE | 2017-01-11 12:32 | HHI.FF ---
Infusion Therapy Location of Infusion Therapy: [facility] Infusion Therapy Order Patient Information Patient Weight 86 kg Diagnosis: (1) Sepsis secondary to UTI Coded Allergies: No Known Allergies (Unverified , 01/07/17) Administer Medication Ceftriaxone 1 gram IV q 24 hours Start Treatment: Jan 11, 2017 Stop Treatment: Jan 19, 2017 Additional Information Venous access: PICC Line Additional Instructions [x] Peripheral flush and dressing changes per protocol [x] Implanted port and central commercial lines underwriter: * Implanted port: 10 ml Normal Saline followed by 5 ml Heparin 100 units/ml Heparin flush after each use and monthly to maintain. [] May leave port accessed during therapy. [] May leave peripheral site accessed for duration of therapy. [x] If patient has SOB or respiratory distress, check oxygen saturation. If less than 90% or clinical signs of respiratory distress, administer oxygen at 2 L/min. via nasal cannula and notify physician. [x] Anaphylaxis/Reaction orders: * Stop infusion. * Keep IV line open with saline flush. * Notify physician. * Monitor vital signs every 15 minutes until symptoms resolve. * Check Oxygen saturation; Oxygen at 2 L/min. via nasal cannula if less than 90% or clinical signs of respiratory distress. * Administer diphenhydramine (Benadryl) 25 mg IV STAT, (unless patient has received as pre-med). May repeat once, if necessary. * Solu-Cortef 250 mg IVP over 30-60 seconds, use 100 mg vials for each dissolution. * Epinephrine (1mg/1 ml) 0.3 mg subcutaneously or IVP now with any signs of respiratory distress. * Check with physician for new additional pre-med orders if patient is re- challenged or re-treated. [x] May remove PICC line when treatment complete, after confirming with Physician. [x] If the patient is admitted to the hospital, the ED, or transferred via [facility] , complete transfer form including medication reconciliation order sheet. Laboratory Tests Weekly Labs: Yarelis Denis MD Jan 11, 2017 12:32
[2017-01-11] MEDS ORDERED: CEFT1INJ2 IV (12:33)
--- NOTE | 2017-01-11 12:34 | HHI.DS ---
Discharge Summary Admission Date Jan 07, 2017 at 08:23 Discharge Date: Jan 11, 2017 Admitting Diagnosis sepsis, uti (1) Diabetes ICD Code: E11.9 - Type 2 diabetes mellitus without complications (2) CVA (cerebral vascular accident) ICD Code: I63.9 - Cerebral infarction, unspecified (3) Aphasia ICD Code: R47.01 - Aphasia (4) Hypertension ICD Code: I10 - Essential (primary) hypertension (5) COPD (chronic obstructive pulmonary disease) ICD Code: J44.9 - Chronic obstructive pulmonary disease, unspecified (6) Sepsis secondary to UTI ICD Code: A41.9 - Sepsis, unspecified organism; N39.0 - Urinary tract infection , site not specified Status: Acute Procedures none Brief History - From Admission 71yo M with PMH of COPD, aphasia and CVA was sent from skilled nursing for possible aspiration. As per [facility], pt vomited after apple juice at 3pm yesterday. Then today at about 3am, the staff noticed he was nonverbal. Pt's baseline is usually incomprehensible sounds but not nonverbal. Pt did make some sound when we moved him so this may be his baseline. He does appear dry. Was also told there was not much urine output from his palomo catheter. Unable to obtain further history. CBC/BMP: 01/11/17 0615 01/11/17 0615 Significant Findings Laboratory Tests Test 01/09/17 07:24 01/10/17 04:55 01/11/17 06:15 Red Blood Count 3.02 MIL/MM3 (4.50-5.90) 2.90 MIL/MM3 (4.50-5.90) Hemoglobin 9.0 GM/DL (13.0-17.0) 8.5 GM/DL (13.0-17.0) Hematocrit 26.7 % (39.0-51.0) 25.2 % (39.0-51.0) Platelet Count 89 TH/MM3 (150-450) 88 TH/MM3 (150-450) Neutrophils (%) (Auto) 87.1 % (16.0-70.0) 76.3 % (16.0-70.0) Lymphocytes (%) (Auto) 6.0 % (9.0-44.0) Lymphocytes # (Auto) 0.5 TH/MM3 (1.0-4.8) 0.7 TH/MM3 (1.0-4.8) Platelet Estimate LOW (NORMAL) LOW (NORMAL) Blood Urea Nitrogen 24 MG/DL (7-18) Random Glucose 259 MG/DL (74-106) 243 MG/DL (74-106) 246 MG/DL (74-106) Calcium Level 8.1 MG/DL (8.5-10.1) 8.2 MG/DL (8.5-10.1) 8.1 MG/DL (8.5-10.1) Sodium Level 146 MEQ/L (136-145) 147 MEQ/L (136-145) Potassium Level 2.9 MEQ/L (3.5-5.1) 3.0 MEQ/L (3.5-5.1) 2.7 MEQ/L (3.5-5.1) Chloride Level 115 MEQ/L (98-107) 115 MEQ/L (98-107) 110 MEQ/L (98-107) Estimat Glomerular Filtration Rate 64 ML/MIN (>89) 82 ML/MIN (>89) Ammonia 34 MCMOL/L (11-32) 33 MCMOL/L (11-32) 41 MCMOL/L (11-32) Eosinophils (%) (Auto) 6.0 % (0.0-4.0) Dohle Bodies PRESENT (NONE SEEN) Basophilic Stippling MOD (NORMAL) Imaging Last Impressions Head CT 01/07/17534 Signed Impressions: Service Date/Time: Saturday, January 07, 2017 06:02 - CONCLUSION: 1. No acute findings. Atrophic brain. Charles Christensen MD Chest X-Ray 01/07/1735 Signed Impressions: Service Date/Time: Saturday, January 07, 2017 05:46 - CONCLUSION: No acute disease. Charles Christensen MD Abdomen/Pelvis CT 01/07/17 0000 Signed Impressions: Service Date/Time: Saturday, January 07, 2017 06:52 - CONCLUSION: 1. No abnormality is identified on this noncontrast examination to explain the patient's hematuria. No renal stones are seen. There is fullness of the collecting systems bilaterally. 2. Mild atelectasis versus consolidation at the lung bases. Nahum Blue MD PE at Discharge GENERAL: This is a well-nourished, well-developed patient, in no apparent distress.NONVERBAL- FOLLOWS NO COMMANDS AT THIS TIME CARDIOVASCULAR: Regular rate and rhythm without murmurs, gallops, or rubs. S1, S2 NO S3 OR S4 RESPIRATORY: Coarse breath sounds bilaterally. Breath sounds equal bilaterally. No wheezes, rhonchi's bilaterally coarse GASTROINTESTINAL: Abdomen soft, non-tender, nondistended. No hepato-splenomegaly , or palpable masses. No guarding. PEG tube Palomo catheter in place MUSCULOSKELETAL: Extremities without clubbing, cyanosis, or edema. No joint tenderness, effusion, or edema noted. No calf tenderness. Negative Homans sign bilaterally. Has bilateral contractURES NEUROLOGICAL: Not awake and sleepy, nonverbal. Some contractures. Not able to assess insight and judgment/ behavior, motor, CN Hospital Course Encephalopathy multiple etiology patient with sepsis, previous CVA, high ammonia Elevated ammonia level. started lactulose titrate to 2-3 BM daily. Monitor ammonia levels Sepsis 2/2 indwelling catheter related UTI, bacteremia with Proteus CT abd/pelvis reviewed: 1. No abnormality is identified on this noncontrast examination to explain the patient's hematuria. No renal stones are seen. There is fullness of the collecting systems bilaterally. 2. Mild atelectasis versus consolidation at the lung bases. CXR reviewed: No evidence of mass, infiltrate or effusion. CT brain reviewed: Marked central and cortical atrophy with dilatation of ventricular and sulcal spaces. There is no parenchymal hemorrhage, acute infarction or mass lesion identified. There are no extra-axial fluid collections appreciated. The posterior fossa is unremarkable with midline fourth ventricle. The portion of the orbits and paranasal sinuses visualized are unremarkable. Seen by ID specialist appreciate recommendations Stop zosyn, vanco start cefriaxone x 10 days if repeat blood cx negative Blood cultures 4/4 bottles with Proteus. Repeat blood cx NTD. Consult ID for eval, appreciate recommendations. Need total of 10 days of ceftriaxone if repeat blood cx negative Monitor VS DM insulin dependent On lantus at home. Will hold lantus at this time as patient was noted hypoglycemic, start tube feeding per diatician recommendations. Accu checks, ISS Dysphagia: on tube feedings, ST ff Hypokalemia Will replace via PEG. Monitor and replace as need. Hypertension: cont home meds as appropriate. 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 H/o extensive tobacco use. Continue duonebs GUARDED PROGNOSIS Code Status DNR Continue on DVT prophylaxis with Lovenox 30 mg subcutaneous daily Continue on Pepcid for GI prophylaxis DC plan palliative care following for goals of care and DC plan. Plan to DC to SNF and thereafter hospice per family. Patient to have antibiotic treatment. Patient with bacteremia, Proteus on ceftiaxone x 10 days if repeat blood cx neg. F/u blood cx. Discussed with Dr Grissom ID specialist. OK to place PICC line and DC patient to SNF. Also infusion done Pt Condition on Discharge: Deteriorating Discharge Disposition: Discharge to SNF Discharge Time: > 30 minutes Discharge Instructions DIET: Follow Instructions for: On Tube Feeding Activities you can perform: Regular-No Restrictions Follow up Referrals: PCP Follow-up - 2-3 Days New Medications: Ceftriaxone Inj (Ceftriaxone Inj) 1 Gm/50 Ml Bagp 1 GM IV Q24H for Infection, #8 BAG 0 Refills Continued Medications: Acetaminophen (Acetaminophen) 325 Mg Capsule 325 MG PEG Q4HR Calcium Carbonate (Calcium Carbonate) 1,500 Mg Tab 600 MG PEG TID for Calcium Supplement, TAB 0 Refills 1,500 mg calcium carbonate (600 mg elemental calcium) Cholestyramine (Cholestyramine) 4 Gm/Dose Powd 4 GM PEG QID PRN for DIARRHEA, #1 CAN 0 Refills 1 level scoopful of powder contains 4 grams of cholestyramine. Famotidine (Famotidine) 20 Mg Tab 20 MG PEG DAILY, #60 TAB 0 Refills Ferrous Sulfate Liq (Ferrous Sulfate Liq) 300 Mg/5 Ml Soln 220 MG PEG BID for Nutritional Supplement, #300 ML 0 Refills Insulin Glargine Inj (Lantus Inj) 1,000 Unit/10 Ml Vial 45 UNITS SQ HS for Blood Sugar Management, VIAL 0 Refills Insulin Human Regular Inj (Novolin R Inj) 1,000 Unit/10 Ml Vial 0 SQ DIRECTED for Blood Sugar Management, #10 ML 0 Refills Sliding Scale As Directed. Magnesium Citrate Liq (Citroma Liq) 300 Ml Liq 300 ML PEG DIRECTED PRN for CONSTIPATION, #1 BOTTLE 0 Refills Metoprolol Tartrate (Metoprolol Tartrate) 50 Mg Tab 50 MG PEG BID, #60 TAB 0 Refills Multiple Vitamins W/ Minerals (Cerovite Advanced Formula) 9 Mg Iron/15 Ml Liq 1 TAB PEG DAILY Yarelis Dodge MD Jan 11, 2017 12:34
[2017-01-11] MEDS: cefTRIAXone INJ 2,000 MG in SODIUM CHLORIDE 0.9% INJ 100 ML IV SCH (12:49)
[2017-01-11] MEDS: ENOXAPARIN SODIUM 30 MG/0.3 ML SYRINGE SQ SCH (12:56)
--- NOTE | 2017-01-11 14:40 | HHI.HCPN ---
Reason for visit a. To assist with evaluation and management of symptoms including: confusion , dysphagia, Debility b. To assist medical decision maker(s) with: better understanding of current medical conditions; weighing benefits/burdens of medical treatment options; making medical treatment decisions. (Benson Mcfadden) Subjective/Interval History Mr. Young is a 71 years old male with a past medical history of dementia, COPD , GERD, DM Type 11, hypertension,aphasia, dysphagia, dementia and neurogenic bladder. Patient is a resident at the [facility]. Patient presented to the ED on 01/07/17 after he vomited and became nonverbal [facility] on at the jail which is not his norm. Per jail staff report, patient usually is nonverbal but makes incomprehensible sounds. Patient seen in room, awake, alert and seems to be trying to communicate with his family. Patient mostly mumbles incomprehensible words and once in a while will say one meaningful word and able to smile. Patient was able to follow commands, "stick tongue out." Patient is afebrile. Laboratory workup revealing WBC 5.5 , hemoglobin 8.5, hematocrit 25.2, platelet count 88, sodium 143, potassium 2.7, BUN/creatinine 10/0.84, random glucose 246, ammonia 41. No current imaging . Pulse low 50s-high 60s. SBP 130s-140s. Patient is on room air with O2 saturation in the high 90s. Patient`s daughter and at bedside. Updated family on patient`s medical status. Patient to be discharged back to the [facility] with parenteral antibiotic infusion for 8 days. Family interested in having patient receive his antibiotic therapy as well as signing him up with hospice services and are open to follow up with hospice. Patient previously had PEG and was receiving TF prior to this admission, family uncertain whether they want to continue with tube feeding or not. Case discussed with Shalonda JONES (Hospice). . Family/friend interactions Patient`s and daughter at bedside. . (Benson Mcfadden) Advance Directives Living Will: Copy in medical record (Patient completed FIVE WISHES-designating his Yoana Young to be his Health Care Agent and his daughter Klarissa Guzman as an alternate Health Care Agent) Health Care Surrogate: Copy in medical record Durable Power of Distributor Sales Consultant: Copy in medical record (Benson Mcfadden) Advance Directive Specifics Date completed: Signed Five Wishes - February 07, 2016 DPOA-daughter- June 04, 2016 . Health Care Surrogate(s): Health Care Agent- Yoana Young. Alternate Health Care Agent- Daughter - Nara Guzman. Patient`s has opted out so Nara Guzman will serve as patient`s Health Care Agent. . Documented care wishes: According to signed FIVE WISHES- Patient does not want life support treatment if he is close to , or in a coma and not expected to wake up or recover, or if he has permanent and severe her brain damage and not expected to recover. If life support has been started, he wants it to be stopped. . Significant change in goals: Patient to be discharged to SNF with a PICC line and parenteral antibiotic therapy for 8 days. . (Benson Mcfadden) Objective Vital Signs Date Time Temp Pulse Resp B/P (MAP) Pulse Ox O2 Delivery O2 Flow Rate FiO2 01/11/17 12:00 98.5 57 16 146/68 (94) 98 01/11/17 08:00 97.9 50 16 138/67 (90) 100 01/11/17 00:00 99.5 66 21 142/85 (104) 93 01/10/17 20:00 99.1 69 20 125/64 (84) 90 01/10/17 16:00 98.3 64 16 132/61 (84) 97 Intake & Output 01/11/17 01/11/17 06:59 18:59 Intake Total 2250 ml Output Total 800 ml Balance 1450 ml IV Total 1200 ml Tube Feeding 650 ml Tube Irrigant 400 ml Output Urine Total 800 ml # Bowel Movements 2 Physical Exam CONSTITUTIONAL/GENERAL: This is a frail, elderly patient, awake and more alert today. TUBES/LINES/DRAINS: PIV, FC,PEG tube SKIN: No jaundice, rashes, or lesions. Ecchymoses on upper extremities. No wounds seen anteriorly. Skin temperature appropriate. Not diaphoretic. HEAD: Atraumatic. Normocephalic. EYES: Pupils equal and round and reactive. No scleral icterus. No injection or drainage. Fundi not examined. ENT: Nose without bleeding or purulent drainage. Moist oral mucosa. NECK: Trachea midline. Supple, nontender. CARDIOVASCULAR: Regular rate and rhythm without murmurs, gallops, or rubs. No JVD. Peripheral pulses symmetric. RESPIRATORY/CHEST: Symmetric, unlabored respirations. Breath sounds equal bilaterally. Lungs rhonchi to auscultation. No wheezes, rales. GASTROINTESTINAL: Abdomen soft, non-tender, nondistended.No guarding. Bowel sounds present. TF infusing at 55ml/hr via PEG tube. Patient incontinent of stool. GENITOURINARY: Without palpable bladder distension. Mcginnis catheter in place. MUSCULOSKELETAL: Extremities without clubbing, cyanosis, or edema.Right leg contracture noted. NEUROLOGICAL: Awake, alert and seems to be trying to communicate with his family. Patient followed command today,"stuck his tongue out". Making incomprehensible words and seldomly saying one meaningful word and able to smile. PSYCHIATRIC: No obvious anxiety/depression. no apparent hallucinations or other psychotic thought process. . (Benson Mcfadden) Diagnostic Tests Laboratory Laboratory Tests Test 01/09/17 07:24 01/10/17 04:55 01/11/17 06:15 White Blood Count 8.2 TH/MM3 (4.0-11.0) 5.5 TH/MM3 (4.0-11.0) Red Blood Count 3.02 MIL/MM3 (4.50-5.90) 2.90 MIL/MM3 (4.50-5.90) Hemoglobin 9.0 GM/DL (13.0-17.0) 8.5 GM/DL (13.0-17.0) Hematocrit 26.7 % (39.0-51.0) 25.2 % (39.0-51.0) Mean Corpuscular Volume 88.4 FL (80.0-100.0) 87.1 FL (80.0-100.0) Mean Corpuscular Hemoglobin 29.8 PG (27.0-34.0) 29.5 PG (27.0-34.0) Mean Corpuscular Hemoglobin Concent 33.7 % (32.0-36.0) 33.9 % (32.0-36.0) Red Cell Distribution Width 14.7 % (11.6-17.2) 14.1 % (11.6-17.2) Platelet Count 89 TH/MM3 (150-450) 88 TH/MM3 (150-450) Mean Platelet Volume 10.3 FL (7.0-11.0) 9.5 FL (7.0-11.0) Neutrophils (%) (Auto) 87.1 % (16.0-70.0) 76.3 % (16.0-70.0) Lymphocytes (%) (Auto) 6.0 % (9.0-44.0) 11.9 % (9.0-44.0) Monocytes (%) (Auto) 4.3 % (0.0-8.0) 5.5 % (0.0-8.0) Eosinophils (%) (Auto) 2.3 % (0.0-4.0) 6.0 % (0.0-4.0) Basophils (%) (Auto) 0.3 % (0.0-2.0) 0.3 % (0.0-2.0) Neutrophils # (Auto) 7.2 TH/MM3 (1.8-7.7) 4.2 TH/MM3 (1.8-7.7) Lymphocytes # (Auto) 0.5 TH/MM3 (1.0-4.8) 0.7 TH/MM3 (1.0-4.8) Monocytes # (Auto) 0.4 TH/MM3 (0-0.9) 0.3 TH/MM3 (0-0.9) Eosinophils # (Auto) 0.2 TH/MM3 (0-0.4) 0.3 TH/MM3 (0-0.4) Basophils # (Auto) 0.0 TH/MM3 (0-0.2) 0.0 TH/MM3 (0-0.2) CBC Comment AUTO DIFF AUTO DIFF Differential Comment AUTO DIFF CONFIRMED AUTO DIFF CONFIRMED Platelet Estimate LOW (NORMAL) LOW (NORMAL) Platelet Morphology Comment NORMAL (NORMAL) NORMAL (NORMAL) Blood Urea Nitrogen 24 MG/DL (7-18) 15 MG/DL (7-18) 10 MG/DL (7-18) Creatinine 1.13 MG/DL (0.60-1.30) 0.91 MG/DL (0.60-1.30) 0.84 MG/DL (0.60-1.30) Random Glucose 259 MG/DL (74-106) 243 MG/DL (74-106) 246 MG/DL (74-106) Calcium Level 8.1 MG/DL (8.5-10.1) 8.2 MG/DL (8.5-10.1) 8.1 MG/DL (8.5-10.1) Magnesium Level 2.0 MG/DL (1.5-2.5) 1.6 MG/DL (1.5-2.5) Sodium Level 146 MEQ/L (136-145) 147 MEQ/L (136-145) 143 MEQ/L (136-145) Potassium Level 2.9 MEQ/L (3.5-5.1) 3.0 MEQ/L (3.5-5.1) 2.7 MEQ/L (3.5-5.1) Chloride Level 115 MEQ/L (98-107) 115 MEQ/L (98-107) 110 MEQ/L (98-107) Carbon Dioxide Level 23.6 MEQ/L (21.0-32.0) 24.9 MEQ/L (21.0-32.0) 24.8 MEQ/L (21.0-32.0) Anion Gap 7 MEQ/L (5-15) 7 MEQ/L (5-15) 8 MEQ/L (5-15) Estimat Glomerular Filtration Rate 64 ML/MIN (>89) 82 ML/MIN (>89) 90 ML/MIN (>89) Ammonia 34 MCMOL/L (11-32) 33 MCMOL/L (11-32) 41 MCMOL/L (11-32) Random Vancomycin Level 3.9 COMMENT 9.8 COMMENT Dohle Bodies PRESENT (NONE SEEN) Basophilic Stippling MOD (NORMAL) (Benson Mcfadden) Result Diagram: 01/11/1761401/11/17614 Assessment and Plan Disease Oriented Problem List: (1) Sepsis secondary to UTI (2) COPD (chronic obstructive pulmonary disease) (3) Aphasia (4) Diabetes Symptom Scale: (1) Confusion 0-10 Scale: Unable to quantify Comment: Change in baseline mentation. . (2) Dysphagia 0-10 Scale: Unable to quantify Comment: Patient has a PEG tube, recently vomited at jail after he was fed apple sauce. . (3) Debility Pertinent Non-Medical Issues Psychosocial:Patient was born and raised in [place]. Patient is once to his Yoana Young for 47 years. Patient had two children,1 adult daughter and a son who at age 4. 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 Patient and his moved to [place] approximately 41/2 years ago. Spiritual:No baptism affiliation Legal:Patient has signed FIVE WISHES Ethical issues impacting care: None identified at this time . Important Contacts Spouse- Yoana Young , Daughter- Nara Guzman Call daughter first . Prognosis Mr. Young is a 71 years old male with a past medical history of COPD, CVA, aphasia, dysphagia and a neurogenic bladder. [facility]. Patient presented to the ED on 01/07/17 after he vomited and became nonverbal later on at the jail which is not his norm. Patient is aphasic , has a peg tube and a chronic indwelling Mcginnis catheter. Patient health has continued to decline since his hospitalization in February of 2016. Patient currently being treated for sepsis secondary to UTI. Given ongoing multiple comorbidities, patient is at risk for further complications, deterioration and decline. Prognosis is guarded. . Code Status: No Code Plan Plan PLAN: Legal decision maker: Patient is not able to participate in his medical decision making. Patient designated his Yoana Young as his Health Care Agent and his daughter Nara Guzman as his alternate Health Care Agent. Patient` s has opted out and Nara Guzman will make medical decisions for patient. Even though patient`s opted out, she still is involved with patient`s care and is agreeable with decisions made by her daughter. Goals: 01/11/2017 Patient to be discharged back to the [facility] with parenteral antibiotic infusion for 8 days. Family interested in having patient receive his antibiotic therapy as well as signing him up with hospice services and are open to follow up with hospice.Patient previously had PEG and was receiving TF prior to this hospital admission, family uncertain whether they want to continue with tube feeding or not. CODE STATUS: DNR SYMPTOMS: * Confusion- Multifactorial. Patient has a history of dementia. Baseline is aphasic, only mumbles incomprehensible words.Recent deviation from his norm. Possibly due to recurrent UTI. Patient on Ceftriaxone. Patient to be discharged to SNF with parenteral antibiotics for 8 days. * Dysphagia-Patient has a PEG tube. Report of vomiting at jail. Possible aspiration. Patient is minimally responsive and has a high risk of aspiration. TF- infusing at 55ml/hr. Recommending speech therapy evaluation if there is need for pleasure foods. * Debility - Progressing. History of prolonged hospitalization and recurrent UTI. Patient is bedbound, totally dependent on all his ADLs. Patient has right leg contracture. PT consulted. Patient is at risk for continued decline and debility. Palliative care will continue to follow the patient during hospital course as condition evolves, to assist patient/decision-maker with understanding of their medical conditions, weighing benefits/burdens of treatment options, for clarification of goals of treatment. Additionally will assist with any symptoms of palliative concern (Benson Mcfadden) Plan * Patient to be discharged back to the [facility] with parenteral antibiotic infusion for 8 days. Family interested in having patient receive his antibiotic therapy as well as signing him up with hospice services and are open to follow up with hospice. Patient previously had PEG and was receiving TF prior to this admission, family uncertain whether they want to continue with tube feeding or not. * Above assessment and plan reviewed, patient evaluated in dual visit with ALANIS Espinoza. Agree with above assessment and plan. (Kiya Perez) Attestation To help prompt me to consider important information that might be impacting today's encounter and assessment, information from prior notes written by myself or my colleagues may have been "brought forward" into today's note. My signature on this note, however, is an attestation that I personally performed the exam, history, and/or decision-making noted today, and, unless otherwise indicated, the interactions with patient, family, and staff as well as the review of records all occurred today. I also attest that the listed assessment and stated plan reflect my best clinical judgment today based on the combination of historical information, prior notes, and today's exam/ interactions. When time spent is documented, it refers only to time spent today by the signer, or if indicated, combined time spent today by collaborating physician/nurse practitioner. . (Benson Mcfadden) Benson Mcfadden Jan 11, 2017 14:40 Kiya Perez Jan 11, 2017 17:28
[2017-01-12] MEDS ORDERED: POTASSIUM BICARBONATE 25 MEQ EFFERVESCENT TAB PO SCH (09:00)
== END 2017-01-11 18:08 | DRG 698 ==
LOC: NEPE 05:26 → NEDA 08:23 → N07A 10:09
PROVIDERS: ADMIT Hospitalist; ATTEND Hospitalist
DX: T83.518A Infection and inflammatory reaction due to other urinary catheter, initial encounter (principal); A41.50 Gram-negative sepsis, unspecified; I63.9 Cerebral infarction, unspecified; G93.40 Encephalopathy, unspecified; R13.10 Dysphagia, unspecified; N13.4 Hydroureter; N39.0 Urinary tract infection, site not specified; E11.649 Type 2 diabetes mellitus with hypoglycemia without coma; Y84.6 Urinary catheterization as the cause of abnormal reaction of the patient, or of later complication, without mention of misadventure at the time of the procedure; E87.6 Hypokalemia; I10 Essential (primary) hypertension; J44.9 Chronic obstructive pulmonary disease, unspecified; K21.9 Gastro-esophageal reflux disease without esophagitis; N31.9 Neuromuscular dysfunction of bladder, unspecified; R32 Unspecified urinary incontinence; R47.02 Dysphasia; Z51.5 Encounter for palliative care; Z66 Do not resuscitate; Z79.4 Long term (current) use of insulin; Z87.891 Personal history of nicotine dependence; Z93.1 Gastrostomy status; F03.90 Unspecified dementia, unspecified severity, without behavioral disturbance, psychotic disturbance, mood disturbance, and anxiety
CPT/HCPCS: 36569; 70450; 71010; 74176; 76937; 80048; 80053; 80202; 81001; 82140; 82550; 82948; 83036; 83605; 83735; 84100; 84439; 84443; 84484; 85007; 85025; 85027; 85610; 85730; 87040; 87077; 87086; 87186; 87205; 93005; 96361; 96374; J0696; J1650; J1815; J2543; J3370; J7030; J7050

== ENCOUNTER 2017-02-16 03:35 | Emergency (ER) | payer MEDICARE, MEDICAID ==
[~2017-02-16 03:35] MED LIST: ACET325C PEG; CALC600T4 PEG; CEFT1INJ2 IV; CHOL4POW3 PEG; CITRSOL4 PEG; FAMO20TA2 PEG; FERR300S PEG; LANTUS2P SQ; METO50TA PEG; NOVORP2 SQ; [UNRECOGNIZED DRUG - CODE] PEG
[2017-02-16 03:39] VITALS: BP 147/82; PULSE 110; RESP 26; O2SAT 94
[2017-02-16] MEDS ORDERED: cefTRIAXone INJ 2,000 MG in SODIUM CHLORIDE 0.9% INJ 100 ML IV STA (03:43)
[2017-02-16] MEDS ORDERED: ACETAMINOPHEN 650 MG SUPP RECTAL ONE (03:45)
[2017-02-16] MEDS ORDERED: ONDANSETRON HCL 4 MG/2 ML VIAL IV PUSH ONE (03:45)
[2017-02-16] MEDS ORDERED: VANCOMYCIN INJ 1,000 MG in SODIUM CHLOR 0.9% 250 ML INJ 250 ML IV ONE (03:45)
[2017-02-16] MEDS ORDERED: metroNIDAZOLE 250 MG INJ 50 ML IV ONE (03:45)
[2017-02-16] MEDS ORDERED: RESP: ALBUTEROL 2.5 MG/IPRATROPIUM 0.5 MG NEB (SCH) NEB ONE (03:45)
[2017-02-16 03:53] VITALS: TEMP 103.1
--- NOTE | 2017-02-16 04:03 | PD ---
HPI Chief Complaint: Altered Mental Status Time Seen by Provider: 03:43 Travel History International Travel<30 days: No Contact w/Intl Traveler<30days: No Traveled to known affect area: No History of Present Illness HPI 71-year-old male presents to the emergency department from nursing facility for evaluation of fever and altered mentation. 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 Patient was recently hospitalized December 2016 with urosepsis. The patient recently reportedly completed a course of antibiotic. Patient was noted by EMS to have temperature elevation. Blood sugar was within acceptable range. Patient reportedly had O2 saturations in the 80s prior to them adding supplemental oxygen. Patient's mentation is chronically depressed but typically is able to moan or communicate with inarticulate sounds and this has decreased this evening. Patient is responsive to painful stimuli. Patient is unable to find any history. Medical records present with the patient from the nursing facility. [facility] Past Medical History Narrative Medical COPD dementia diabetes CVA with aphasia PEG tube aspiration pneumonitis UTI hypertension and renal failure; nursing notes reviewed Arthritis: No Autoimmune Disease: No Cancer: No Cardiovascular Problems: No COPD: Yes Cerebrovascular Accident: No Dementia: Yes Diabetes: Yes Patient Takes Glucophage: No Endocrine: Yes Gastrointestinal Disorders: Yes GERD: No Genitourinary: Yes Hiatal Hernia: Yes (MIDSTERNAL HERNIA PALPABLE) Hypertension: Yes Immune Disorder: No Musculoskeletal: Yes (RIGHT LEG CONTRACTED) Neurologic: Yes (dementia) Psychiatric: No Reproductive: No Respiratory: Yes (FAMILY CONCERNED ABOUT SLEEP APNEA) Migraines: No Renal Failure: Yes (RENAL FAILURE SECONDARY TO SEPTIC SHOCK) Seizures: No Thyroid Disease: No Ulcer: No Tetanus Vaccination: Unknown Past Surgical History Abdominal Surgery: Yes (PEG tube and gallbladder) Arteriovenous Shunt: No Body Medical Devices: PEG TUBE Cardiac Surgery: No Ear Surgery: No Endocrine Surgery: No Eye Surgery: No Genitourinary Surgery: No Gynecologic Surgery: No Insulin Pump: No Joint Replacement: Yes (RIGHT SHOULDER) Oral Surgery: No Pacemaker: No Thoracic Surgery: No Other Surgery: Yes (plastic joint in right shoulder, PEG tube, gallbladder drainage tube) Social History Alcohol Use: No (UNABLE TO OBTAIN) Tobacco Use: No Substance Use: No Allergies-Medications (Allergen,Severity, Reaction): Coded Allergies: No Known Allergies (Unverified Adverse Reaction, Unknown, 02/16/17) Reported Meds & Prescriptions Reported Meds & Active Scripts Active Reported Diabetisource AC 1.2 Quentin Liq (Nut.tx.gluc Intol,Lf,Soy/Fiber) 0.06 Gram-1.2 Kcal /Ml Liquid 80 Ml PEG Nystatin Topical (Nystatin) 100,000 unit/gm Cream 1 Applic TOPICAL BID Fluconazole 150 Mg Tab 150 Mg PEG ONCE Novolin R Inj (Insulin Human Regular) 1,000 Unit/10 Ml Vial 0 SQ DIRECTED Sliding Scale As Directed. Metoprolol Tartrate 50 Mg Tab 50 Mg PEG BID Lantus Inj (Insulin Glargine) 1,000 Unit/10 Ml Vial 45 Units SQ HS Ferrous Sulfate Liq (Ferrous Sulfate) 300 Mg/5 Ml Soln 220 Mg PEG BID Famotidine 20 Mg Tab 20 Mg PEG DAILY Citroma Liq (Magnesium Citrate) 300 Ml Liq 300 Ml PEG DIRECTED PRN Cholestyramine 4 Gm/Dose Powd 4 Gm PEG QID PRN 1 level scoopful of powder contains 4 grams of cholestyramine. Calcium Carbonate 1,500 Mg Tab 600 Mg PEG TID 1,500 mg calcium carbonate (600 mg elemental calcium) Acetaminophen 325 Mg Capsule 325 Mg PEG Q4HR Review of Systems Except as stated in HPI: all other systems reviewed are Neg Physical Exam Narrative GENERAL: Well-developed well-nourished elderly male with supplemental oxygen in place and altered mentation E:2, motor: 4, V:3-4, 9-10 SKIN: Warm and dry. HEAD: Normocephalic. EYES: No scleral icterus. No injection or drainage. NECK: Supple, trachea midline. No JVD or lymphadenopathy. CARDIOVASCULAR: Regular rate and rhythm without murmurs, gallops, or rubs. RESPIRATORY: Breath sounds equal bilaterally except for crackles left base. No accessory muscle use. GASTROINTESTINAL: Abdomen soft, non-tender, nondistended. PEG tube in place MUSCULOSKELETAL: No cyanosis, or edema. Lower extremity contracture and hip flexion and knee flexion and hip abduction BACK: Nontender without obvious deformity. No CVA tenderness. Data Data Last Documented VS Vital Signs Date Time Temp Pulse Resp B/P (MAP) Pulse Ox O2 Delivery O2 Flow Rate FiO2 02/16/17 06:01 100.5 02/16/17 05:06 107 24 93 Venturi Mask 02/16/17 04:26 50 Orders Orders Sepsis Workup Initiated (02/16/17 ) Electrocardiogram (02/16/17 03:43) Complete Blood Count With Diff (02/16/17 03:43) Comprehensive Metabolic Panel (02/16/17 03:43) Prothrombin Time / Inr (Pt) (02/16/17 03:43) Act Partial Throm Time (Ptt) (02/16/17 03:43) Lactic Acid Sepsis Protocol (02/16/17 03:43) Magnesium (Mg) (02/16/17 03:43) Lipase (02/16/17 03:43) Ckmb (Isoenzyme) Profile (02/16/17 03:43) Troponin I (02/16/17 03:43) Urinalysis - C+S If Indicated (02/16/17 03:43) Blood Culture (02/16/17 03:43) Chest, Single Ap (02/16/17 03:43) Blood Glucose (02/16/17 03:43) Ecg Monitoring (02/16/17 03:43) Iv Access Insert/Monitor (02/16/17 03:43) Oximetry (02/16/17 03:43) Oxygen Administration (02/16/17 03:43) Acetaminophen Supp (Tylenol Supp) (02/16/17 03:45) Ondansetron Inj (Zofran Inj) (02/16/17 03:45) Ceftriaxone Inj (Rocephin Inj) (02/16/17 03:43) Vancomycin Inj (Vancomycin Inj) (02/16/17 03:45) Metronidazole 250 Mg Inj (Flagyl 250 Mg (02/16/17 03:45) Albuterol-Ipratropium Neb (Duoneb Neb) (02/16/17 03:45) Arterial Blood Gas (Abg) (02/16/17 ) Ammonia (02/16/17 03:43) Sodium Chlor 0.9% 1000 Ml Inj (Ns 1000 M (02/16/17 04:15) Ct Brain W/O Iv Contrast(Rout) (02/16/17 ) Urine Culture (02/16/17 04:05) Labs Laboratory Tests Test 02/16/17 04:00 02/16/17 04:05 White Blood Count 12.1 TH/MM3 Red Blood Count 3.59 MIL/MM3 Hemoglobin 10.2 GM/DL Hematocrit 31.0 % Mean Corpuscular Volume 86.2 FL Mean Corpuscular Hemoglobin 28.5 PG Mean Corpuscular Hemoglobin Concent 33.0 % Red Cell Distribution Width 14.1 % Platelet Count 160 TH/MM3 Mean Platelet Volume 10.4 FL Neutrophils (%) (Auto) 92.5 % Lymphocytes (%) (Auto) 3.1 % Monocytes (%) (Auto) 2.8 % Eosinophils (%) (Auto) 0.2 % Basophils (%) (Auto) 1.4 % Neutrophils # (Auto) 11.2 TH/MM3 Lymphocytes # (Auto) 0.4 TH/MM3 Monocytes # (Auto) 0.3 TH/MM3 Eosinophils # (Auto) 0.0 TH/MM3 Basophils # (Auto) 0.2 TH/MM3 CBC Comment AUTO DIFF Differential Total Cells Counted 100 Neutrophils % (Manual) 78 % Band Neutrophils % 19 % Lymphocytes % 1 % Monocytes % 2 % Neutrophils # (Manual) 11.7 TH/MM3 Differential Comment FINAL DIFF MANUAL Toxic Vacuolation PRESENT Platelet Estimate NORMAL Platelet Morphology Comment NORMAL Red Cell Morphology Comment NORMAL Prothrombin Time 11.7 SEC Prothromb Time International Ratio 1.1 RATIO Activated Partial Thromboplast Time 28.9 SEC Blood Urea Nitrogen 37 MG/DL Creatinine 0.98 MG/DL Random Glucose 149 MG/DL Total Protein 7.4 GM/DL Albumin 2.3 GM/DL Calcium Level 8.9 MG/DL Magnesium Level 2.1 MG/DL Alkaline Phosphatase 593 U/L Aspartate Amino Transf (AST/SGOT) 39 U/L Alanine Aminotransferase (ALT/SGPT) 107 U/L Total Bilirubin 0.6 MG/DL Sodium Level 137 MEQ/L Potassium Level 3.6 MEQ/L Chloride Level 97 MEQ/L Carbon Dioxide Level 30.7 MEQ/L Anion Gap 9 MEQ/L Estimat Glomerular Filtration Rate 76 ML/MIN Lactic Acid Level 1.8 mmol/L Ammonia 32 MCMOL/L Total Creatine Kinase 23 U/L Troponin I 0.04 NG/ML Lipase 247 U/L Urine Color YELLOW Urine Turbidity HAZY Urine pH 6.0 Urine Specific [place] 1.021 Urine Protein 100 mg/dL Urine Glucose (UA) NEG mg/dL Urine Ketones NEG mg/dL Urine Occult Blood MOD Urine Nitrite POS Urine Bilirubin NEG Urine Urobilinogen LESS THAN 2.0 MG/DL Urine Leukocyte Esterase LARGE Urine RBC 16 /hpf Urine WBC /hpf Urine WBC Clumps FEW Urine Bacteria MANY /hpf Urine Hyaline Casts 2 /lpf Urine Mucus FEW /lpf Microscopic Urinalysis Comment CATH-CULTURE IND Blood Gas Puncture Site RT FEMORAL Blood Gas Patient Temperature 98.6 Blood Gas HCO3 30 mmol/L Blood Gas Base Excess 5.9 mmol/L Blood Gas Oxygen Saturation 90 % Arterial Blood pH 7.47 Arterial Blood Partial Pressure CO2 41 mmHg Arterial Blood Partial Pressure O2 60 mmHG Arterial Blood Oxygen Content 14.4 Vol % Arterial Blood Carboxyhemoglobin 1.6 % Arterial Blood Methemoglobin 0.2 % Blood Gas Hemoglobin 11.3 G/DL Oxygen Delivery Device ON NEBULIZER TX Blood Gas Liter Flow 8 L/M MDM Medical Decision Making Medical Screen Exam Complete: Yes Emergency Medical Condition: Yes Medical Record Reviewed: Yes Interpretation(s) EKG: Sinus tachycardia rate [address] segment depression anterolaterally no acute ST elevation artifact is present at baseline Chest x-ray: No lobar infiltrate Last Impressions Chest X-Ray 02/16/17 0343 Signed Impressions: Service Date/Time: Thursday, February 16, 2017 04:00 - CONCLUSION: No evidence of acute cardiopulmonary disease. Nahum Pichardo MD Head CT 02/16/17 0000 Signed Impressions: Service Date/Time: Thursday, February 16, 2017 05:31 - CONCLUSION: No acute intracranial abnormality demonstrated. Mild to moderate ventriculomegaly unchanged. Nahum Pichardo MD CBC & BMP Diagram 02/16/17 04:00 Total Protein 7.4, Albumin 2.3 L, Calcium Level 8.9, Magnesium Level 2.1, Alkaline Phosphatase 593 H, Aspartate Amino Transf (AST/SGOT) 39 H, Alanine Aminotransferase (ALT/SGPT) 107 H, Total Bilirubin 0.6 Vital Signs Date Time Temp Pulse Resp B/P (MAP) Pulse Ox O2 Delivery O2 Flow Rate FiO2 02/16/17 06:01 100.5 02/16/17 05:06 107 24 165/60 (95) 93 Venturi Mask 02/16/17 04:26 94 Venturi Mask 50 02/16/17 03:53 103.1 02/16/17 03:39 110 26 147/82 (103) 94 UA positive bacteria positive white blood cells positive nitrites; culture indicated Troponin I 0.04, not elevated Lactic acid 1.8, not elevated Differential Diagnosis Sepsis, aspiration pneumonia pneumonitis, COPD with hypercarbia and hypoxemia, urosepsis, ACS, [place] Narrative Course Patient placed on laboratory monitor IV access obtained patient receiving supplemental oxygen and during intake examination patient rolled onto right side and vomited large amount of stomach contents consistent with peg feedings; suction was performed Cultures obtained patient administered acetaminophen for fever and bolus of normal saline administered At that time patient's case was discussed in detail with the health care surrogate the patient's daughter Nara Guzman at [phone] and patient was identified to be a DO NOT RESUSCITATE DO NOT INTUBATE patient --- all was placed to patient's home at 4 AM and message left on answering machine for CARE surrogate as no one answered when number was phoned. ABG on 8 L/m nasal cannula pH 7.47 PCO2 41 PO2 60 bicarbonate 29.7 base excess of 6 O2 saturation 90%; patient placed on 40% Ventimask CBC with automated differential mild leukocytosis with left shift; chemistries pending; review of medical records cultures from December visit patient had Proteus UTI treated with Rocephin at time of discharge. At 4:45 AM patient now opens his eyes to his name and to tactile stimulation patient continues to mumble incomprehensibly intermittently and patient does look toward examiner purposely some improvement of mentation at this time. At 5:26 AM patient's daughter Nara Guzman health care surrogate and power of commonwealth attorney for the patient at [phone] has called back stating that Mr. Young is a hospice patient that the family has requested the hospitalist keep him comfortable and manage him with antibiotics for Tylenol as needed for fever or for infection but that they did not want him transported to the hospital or higher level of care for any further aggressive management that he is a DO NOT RESUSCITATE and a DO NOT INTUBATE based on his wishes and their wishes and would like to have the [facility] notified regarding management of his care. A call has been placed to [facility] at 5:27 AM. Sepsis Criteria SIRS Criteria (2 or more): Temp > 100.9 or < 96.8, Heart rate over 90, RR > 20 or PaCO2 < 32, WBC > 86095, < 4000 or > 10% bands Sepsis Criteria (SIRS+source): Infect source susp/known (urine/pulmonary) Physician Communication Physician Communication Call placed to [facility] service Diagnosis Primary Impression: Altered mental status Additional Impressions: Sepsis Qualified Codes: A41.9 - Sepsis, unspecified organism UTI (urinary tract infection) Yoana Ferguson MD Feb 16, 2017 04:03
[2017-02-16] MEDS ORDERED: FLUC150T PEG (04:06)
[2017-02-16] MEDS ORDERED: [UNRECOGNIZED DRUG - CODE] PEG (04:06)
[2017-02-16] MEDS ORDERED: NYST15T TOPICAL (04:06)
[2017-02-16 04:12] LABS: BLOOD GAS BASE EXCESS 5.9 mmol/L (-2-2); BLOOD GAS CARBOXYHEMOGLOBIN 1.6 % (0-4); BLOOD GAS HCO3 30 mmol/L (22-26); BLOOD GAS METHEMOGLOBIN 0.2 % (0-2); BLOOD GAS O2 HGB SATURATION 90 % (90-100); BLOOD GAS OXYGEN CONTENT 14.4 Vol % (12.0-20.0); BLOOD GAS PCO2 41 mmHg (38-42); BLOOD GAS PO2 60 mmHG (61-120); BLOOD GAS TOTAL HGB 11.3 G/DL (12.0-16.0); TEMP CORR TO 98.6
[2017-02-16 04:13] LABS: CRITICAL VALUE NO; DRAW SITE RT FEMORAL; LITER FLOW 8 L/M; NUMBER OF ARTERIAL PUNCTURES 1; OXYGEN DEVICE ON NEBULIZER TX; STAT YES
[2017-02-16] MEDS ORDERED: SODIUM CHLOR 0.9% 1000 ML INJ 1,000 ML IV ONE (04:15)
[2017-02-16 04:26] VITALS: O2SAT 94
[2017-02-16 04:33] LABS: AUTOMATED NEUTROPHIL # 11.2 TH/MM3 (1.8-7.7); BASOPHIL # 0.2 TH/MM3 (0-0.2); BASOPHIL % 1.4 % (0.0-2.0); EOSINOPHIL % 0.2 % (0.0-4.0); LYMPH % 3.1 % (9.0-44.0); LYMPHOCYTE # 0.4 TH/MM3 (1.0-4.8); MEAN CELL VOLUME 86.2 FL (80.0-100.0); MEAN CORPUSCULAR HEMOGLOBIN 28.5 PG (27.0-34.0); MONO % 2.8 % (0.0-8.0); NEUT % 92.5 % (16.0-70.0); PLATELET COUNT 160 TH/MM3 (150-450); RED BLOOD COUNT 3.59 MIL/MM3 (4.50-5.90); RED CELL DISTRIBUTION WIDTH 14.1 % (11.6-17.2); WHITE BLOOD COUNT 12.1 TH/MM3 (4.0-11.0)
[2017-02-16 04:34] LABS: HEMO FLAGS AUTO DIFF
[2017-02-16 04:40] LABS: APTT (PATIENT) 28.9 SEC (24.3-30.1); INTERNATIONAL NORMALIZED RATIO 1.1 RATIO; PROTHROMBIN TIME - PATIENT 11.7 SEC (9.8-11.6)
[2017-02-16 04:41] LABS: ALT (GPT) 107 U/L (12-78); ANION GAP 9 MEQ/L (5-15); AST (GOT) 39 U/L (15-37); BICARBONATE 30.7 MEQ/L (21.0-32.0); BLOOD UREA NITROGEN 37 MG/DL (7-18); CHLORIDE 97 MEQ/L (98-107); GLOMERULAR FILTRATION RATE 76 ML/MIN (>89); MAGNESIUM 2.1 MG/DL (1.5-2.5); POTASSIUM 3.6 MEQ/L (3.5-5.1); SODIUM (NA) 137 MEQ/L (136-145)
[2017-02-16 04:45] LABS: ALKALINE PHOSPHATASE 593 U/L (45-117); TOTAL BILIRUBIN ADULT 0.6 MG/DL (0.2-1.0)
--- NOTE | 2017-02-16 04:47 | RADRPT ---
EXAM DATE/TIME: 02/16/2017 04:00 [facility] COMPARISON: CHEST SINGLE AP, January 07, 2017, 5:46. INDICATIONS : Shortness of breath. MEDICAL HISTORY : None. SURGICAL HISTORY : None. ENCOUNTER: Initial ACUITY: 1 day PAIN SCORE: 0/10 LOCATION: Bilateral chest FINDINGS: A single view of the chest demonstrates the lungs to be symmetrically aerated without evidence of mas s, infiltrate or effusion. The cardiomediastinal contours are unremarkable. Osseous structures are intact. CONCLUSION: No evidence of acute cardiopulmonary disease. Nahum Pichardo MD on February 16, 2017 at 4:45 Board Certified Radiologist. This report was verified electronically.
[2017-02-16 04:53] LABS: CREATINE KINASE 23 U/L (39-308)
[2017-02-16 05:06] VITALS: BP 165/60; PULSE 107; RESP 24; O2SAT 93
[2017-02-16 05:09] LABS: BANDS 19 % (0-6); NEUTROPHIL # MANUAL DIFF 11.7 TH/MM3 (1.8-7.7); PLATELET ESTIMATE SMEAR NORMAL (NORMAL); PLATELET MORPHOLOGY NORMAL (NORMAL); POLYS (SEG NEUTROPHILS) 78 % (16-70); SCAN/DIFF FINAL DIFF MANUAL; WBC DIFF SAMPLE 100
[2017-02-16 05:10] LABS: TOXIC VACUOLATION PRESENT (NONE SEEN)
[2017-02-16 05:24] LABS: BACTERIA, URINE MANY /hpf; BLOOD, URINE MOD (NEG); COMMENT (UR) CATH-CULTURE IND; CULTURE IF INDICATED CATH CULTURE IND; GLUCOSE,URINE NEG (NEG); HYALINE CAST, URINE 2 /lpf (RARE); KETONE, URINE NEG (NEG); MUCUS URINE FEW /lpf (OCC); NITRITE,URINE POS (NEG); URINE COLOR YELLOW (YELLW/STRAW)
--- NOTE | 2017-02-16 05:49 | RADRPT ---
EXAM DATE/TIME: 02/16/2017 05:31 [facility] COMPARISON: CT BRAIN W/O CONTRAST, January 07, 2017, 6:02. INDICATIONS : Altered mental status. RADIATION DOSE: 36.76 CTDIvol (mGy) MEDICAL HISTORY : Dementia. Hypertension. Chronic obstructive pulmonary disease.CVA. SURGICAL HISTORY : None. ENCOUNTER: Initial ACUITY: 1 day PAIN SCALE: Non-responsive LOCATION: cranial TECHNIQUE: Multiple contiguous axial images were obtained of the head. Using automated exposure control and adj ustment of the mA and/or kV according to patient size, radiation dose was kept as low as reasonably a chievable to obtain optimal diagnostic quality images. DICOM format image data is available electro nically for review and comparison. FINDINGS: CEREBRUM: Mild to moderate ventriculomegaly unchanged. Atrophy present. No evidence of midline shift, mass les ion, hemorrhage or acute infarction. No extra-axial fluid collections are seen. POSTERIOR FOSSA: The cerebellum and brainstem are intact. The 4th ventricle is midline. The cerebellopontine angle i s unremarkable. EXTRACRANIAL: The visualized portion of the orbits is intact. SKULL: The calvaria is intact. No evidence of skull fracture. CONCLUSION: No acute intracranial abnormality demonstrated. Mild to moderate ventriculomegaly unchanged. Nahum Pichardo MD on February 16, 2017 at 5:45 Board Certified Radiologist. This report was verified electronically.
[2017-02-16 06:01] VITALS: TEMP 100.5
[2017-02-16 10:00] VITALS: BP 104/62; PULSE 104; RESP 12; TEMP 98; O2SAT 98
--- NOTE | 2017-02-18 08:47 | EKG ---
Date Performed: 02/16/2017 Time Performed: 04:12:01 PTAGE: 71 years EKG: SINUS TACHYCARDIA ST DEPRESSION, CONSIDER SUBENDOCARDIAL INJURY ABNORMAL ECG PREVIOUS TRACING : 01/07/2017 06.01 DOCTOR: Lm Cota Interpretating Date/Time 02/18/2017 08:46:01
== END 2017-02-16 12:02 ==
LOC: NEPC 03:35
DX: A41.89 Other specified sepsis (principal); N39.0 Urinary tract infection, site not specified; B96.29 Other Escherichia coli [E. coli] as the cause of diseases classified elsewhere; B96.5 Pseudomonas (aeruginosa) (mallei) (pseudomallei) as the cause of diseases classified elsewhere; E11.9 Type 2 diabetes mellitus without complications; I10 Essential (primary) hypertension; F03.90 Unspecified dementia, unspecified severity, without behavioral disturbance, psychotic disturbance, mood disturbance, and anxiety; R00.0 Tachycardia, unspecified; R94.31 Abnormal electrocardiogram [ECG] [EKG]; Z79.4 Long term (current) use of insulin; Z79.899 Other long term (current) drug therapy; Z86.73 Personal history of transient ischemic attack (TIA), and cerebral infarction without residual deficits
CPT/HCPCS: 36600; 70450; 71010; 80053; 81001; 82140; 82550; 82805; 83605; 83690; 83735; 84484; 85007; 85027; 85610; 85730; 87040; 87077; 87086; 87186; 87205; 93005; 94664; 96365; 96367; 96375; 99285; J0696; J2405; J3370; J7030; J7050